=== PATIENT | female | born 1990 | race Caucasian/White ===

== ENCOUNTER → 2017-08-24 14:52 | Outpatient (CLI) | payer MEDICAID, SELFPAY ==
--- NOTE | 2017-08-24 15:01 | US_ITS ---
ULTRASOUND THYROID PROCEDURE: Multiple sagittal & transverse ultrasound images of the thyroid.BH HISTORY: Dysphasia. HISTORY of thyroid cancer. Pain right thyroid. COMPARISON: No previous studies for comparison ----- FINDINGS: No discrete nodules identified.. Fair quality images. Slightly less than optimal along posterior gland with some artifact and fall out Fairly homogeneous with only slight variations Gland appears normal to upper normal size. Modest color Doppler flow to both right and left lobe. RIGHT LOBE: 4 cm x 1.9 cm wide x 1.3 cm AP. LEFT LOBE: 3.7 cm x 1.7 cm wide x 1.2 cm AP. On close inspection initially question possible vague vague 3.5 mm nodule at posterior lower pole but it does not persist.. Equivocal observation not convincing for nodule. ISTHMUS: Normal. Moderate thickness 4.1 mm AP thickness ======IMPRESSION ...... no discrete thyroid nodule on today's study. Gland is fairly homogeneous with no discrete findings on submitted images. (Added note. An addendum may follow as I have requested previous studies from [facility] for comparison as I understand name reported a thyroid nodule on previous ultrasound thyroid)
== END ==
PROVIDERS: PCP Physician Assistant; Visit Provider Physician Assistant
DX: R13.10 Dysphagia, unspecified (principal); Z80.8 Family history of malignant neoplasm of other organs or systems
CPT/HCPCS: 76536

== ENCOUNTER → 2018-06-17 09:36 | Outpatient (CLI) | payer MEDICAID, SELFPAY ==
[2018-06-17 09:41] LABS: Adenovirus,PCR Not Detected (NotDetected); Bordetella Pertussis Not Detected (NotDetected); Chlamydophila Pneumoniae, PCR Not Detected (NotDetected); Coronavirus 229E Not Detected (NotDetected); Coronavirus NL63 Not Detected (NotDetected); Coronavirus OC43 Not Detected (NotDetected); Coronovirus HKU1,PCR Not Detected (NotDetected); Human Metapneumovirus Not Detected (NotDetected); Influenza A, PCR Not Detected (NotDetected); Influenza AH1, 2009 Not Detected (NotDetected); Influenza AH1, PCR Not Detected (NotDetected); Influenza AH3,PCR Not Detected (NotDetected); Influenza B, PCR Not Detected (NotDetected); Mycoplasma Pneumoniae, PCR Not Detected (NotDetected); Parainfluenza 1, PCR Not Detected (NotDetected); Parainfluenza 2, PCR Not Detected (NotDetected); Parainfluenza 3, PCR Not Detected (NotDetected); Parainfluenza 4, PCR Not Detected (NotDetected); Respiratory Syncytial Virus Not Detected (NotDetected); Rhinovirus/Enterovirus Not Detected (NotDetected)
== END ==
PROVIDERS: PCP Physician Assistant; Visit Provider Physician Assistant
DX: R09.89 Other specified symptoms and signs involving the circulatory and respiratory systems (principal)
CPT/HCPCS: 87486; 87581; 87633; 87798

== ENCOUNTER 2019-11-04 12:51 | Emergency (ER) | payer MEDICAID, SELFPAY ==
[2019-11-04 12:53] VITALS: BP 129/73; PULSE 87; RESP 17; TEMP 36.7; O2SAT 98; BMI 34.9
[2019-11-04 13:06] VITALS: BMI 34.9
--- NOTE | 2019-11-04 13:08 | CT_ITS ---
PROCEDURE: CT ABDOMEN PELVIS WO CON CLINICAL INDICATION: stone protocol The low pelvic pain, flank pain COMPARISON: No exams were available for comparison TECHNIQUE: Axial images obtained with sagittal and coronal reformats. All CT scans at the facility use one or more dose reduction, viz: automated exposure control, ma/kV adjustment per patient size (including targeted exams where dose is matched to indication, i.e. head), or iterative reconstruction technique. FINDINGS: LOWER THORAX: No acute finding ABDOMEN & PELVIS: Prior cholecystectomy. The liver, spleen, adrenal glands, pancreas, and kidneys have an unremarkable appearance. No intestinal obstruction or free air. No evidence of appendicitis. There are few scattered colonic diverticula but no evidence of diverticulitis. No pelvic mass abnormal fluid collection or focal inflammatory change apparent no acute bony anomalies. IMPRESSION: No acute finding Dictated by: Terry Guerrero MD 11/04/2019 14:18 Electronically signed by Terry Guerrero MD in [place] 11/04/2019 14:18
[2019-11-04 13:18] LABS: Microscopic, Urine URINE MICROSCOPIC (MICROSCOPIC)
[2019-11-04 13:19] LABS: Basophils % 0.4 % (0.1-2.0); Eosinophils # 0.2 K/mm3 (0.0-0.4); Eosinophils % 1.6 % (0.1-12.0); Hematocrit 44.7 % (37.0-47.0); Hemoglobin 15.3 g/dL (12.2-16.2); Lymphocytes # 2.2 K/mm3 (0.7-4.5); Lymphocytes % 21.1 % (10-50); Mean Corpuscular HGB Conc 34.1 g/dL (31.8-35.4); Mean Corpuscular Hemoglobin 30.2 pg (27.0-31.2); Mean Corpuscular Volume 88.4 fl (81-99); Mean Platelet Volume 8.5 fl (7.4-10.4); Monocytes # 0.2 K/mm3 (0.1-1.0); Monocytes % 2.1 % (1.7-9.3); Neutrophils # 7.7 K/mm3 (1.8-7.8); Platelet Count 379 K/mm3 (142-424); Red Blood Count 5.06 M/mm3 (4.20-5.40); Red Cell Distribution Width 12.9 % (11.5-17.5); White Blood Count 10.3 K/mm3 (4.8-10.8)
[2019-11-04 13:25] LABS: Appearance,Urine CLEAR (Clear); Bilirubin,Urine Negative (Negative); Blood, Urine Negative (Negative); Color,Urine YELLOW (Yellow); Glucose,Urine (UA) Negative (Negative); Ketones,Urine Negative (Negative); Leukocyte Esterase,Urine Negative (Negative); Nitrate,Urine Negative (Negative); PH,Urine 5.5 (5.0-8.5); Protein,Urine Negative (Negative); Specific Gravity, Urine >= 1.030 (1.005-1.030); Urobilinogen,Urine 0.2 EU/dl (0.2)
[2019-11-04 13:26] LABS: Urine Pregnancy, HCG Qual. Negative (Negative)
--- NOTE | 2019-11-04 13:27 | PC.NURSE ---
RAD NOTIFIED OF NEG PREG
[2019-11-04 13:29] LABS: Alanine Aminotransferase 23 U/L (12-78); Albumin Level 4.8 g/dl (3.5-5.0); Albumin/Globulin Ratio 1.5 (1.1-1.8); Alkaline Phosphatase 79 U/L (38-126); Anion Gap 11.1 mEq/L (5-15); Aspartate Amino Transferase 25 U/L (14-36); Bilirubin,Total 0.5 mg/dl (0.2-1.3); Blood Urea Nitrogen 10 mg/dl (7-17); Calcium 9.5 mg/dl (8.4-10.2); Carbon Dioxide 24 mmol/L (22.0-30.0); Chloride 105 mmol/L (98-107); Creatinine Clearance Estimated 174 mL/min (50-200); Estimated Glomerular Filt Rate 86 ml/min (>60); GFR (African American) 104 ML/MIN (>60); Globulin 3.3 g/dL (1.3-3.2); Glucose 105 mg/dl (74-100); Potassium 4.1 mmoL/L (3.5-5.1); Sodium 136 mmol/L (136-145); Total Protein,Serum 8.1 g/dl (6.3-8.2)
[2019-11-04 13:31] LABS: Bacteria,Urine 3+ /lpf; RBC,Urine Occasional #/hpf (0-3); WBC,Urine Occasional #/hpf (0-3)
--- NOTE | 2019-11-04 14:37 | HMH.EDGENADL ---
ED Disposition Clinical Impression: Abdominal pain Disposition: Home, Self-Care Condition on Discharge: Good Instructions: DI for Acute Abdomen Referrals: Rosalva Wallace APRN [Primary Care Provider] - - Critical Care Critical Care Time: No Attestation: On 11/04/19, the high probability of a clinically significant, sudden or life threatening deterioration of the following system(s) required my full and direct attention, intervention and personal management. The time I documented below is in addition to time spent performing reported procedures but includes the following listed in this critical care notation. Medical Decision Making - Medical Records Medical records reviewed: Yes: I reviewed the patient's medical records. - [place] Inquiry Pt receiving controlled substance: No Vital Signs: 11/04/19 12:53 Temperature 98.1 F Temperature Source Oral Pulse Rate [Radial] 87 Respiratory Rate 17 Blood Pressure [Right Arm] 129/73 Blood Pressure Mean [Right Arm] 91 Blood Pressure Source [Right Arm] Automatic Cuff Blood Pressure Position [Right Arm] Sitting 02 Sat by Pulse Oximetry 98 Oxygen Delivery Method Room Air - Lab Data Lab results reviewed: Yes: I reviewed the patient's lab results. Lab Results 11/04/19 13:04: WBC 10.3, RBC 5.06, Hgb 15.3, Hct 44.7, MCV 88.4, MCH 30.2, MCHC 34.1, RDW 12.9, Plt Count 379, MPV 8.5, Neut % (Auto) 75.0, Lymph % (Auto) 21.1, [place] % (Auto) 2.1, Eos % (Auto) 1.6, Baso % (Auto) 0.4, Neut # (Auto) 7.7, Lymph # (Auto) 2.2, [place] # (Auto) 0.2, Eos # (Auto) 0.2, Baso # (Auto) 0.0 11/04/19 13:04: Sodium 136, Potassium 4.1, Chloride 105, Carbon Dioxide 24, Anion Gap 11.1, BUN 10, Creatinine 0.80, Estimated Creat Clear 174, Estimated GFR 86, Est GFR ( Amer) 104, Glucose 105 H, Calcium 9.5, Total Bilirubin 0.5, AST 25, ALT 23, Alkaline Phosphatase 79, Total Protein 8.1, Albumin 4.8, Globulin 3.3 H, Albumin/Globulin Ratio 1.5 11/04/19 13:08: Urine Color Yellow, Urine Appearance Clear, Urine pH 5.5, Ur Specific [place] >= 1.030, Urine Protein Negative, Urine Glucose (UA) Negative, Urine Ketones Negative, Urine Blood Negative, Urine Nitrate Negative, Urine Bilirubin Negative, Urine Urobilinogen 0.2, Ur Leukocyte Esterase Negative, Urine RBC Occasional, Urine WBC Occasional, Ur Squamous Epith Cells 10-20, Urine Bacteria 3+ 11/04/19 13:08: Urine HCG, Qual Negative Result diagrams: 11/04/19 13:04 11/04/19 13:04 Orders (Tests/Meds): ORDERS Category Date Time Status Urine Culture Stat Micro 11/04/19 13:08 Received - CT Data CT Scan: Abdomen, Pelvis Time Received: 14:21 Preliminary Findings: Normal/NAD General Adult HPI - General Chief complaint: Abdominal Pain Stated complaint: possible kidney stone Time Seen by Provider: 11/04/19 14:37 Mode of Arrival: Ambulatory Source of Information: Patient Limitations: No Limitations Description of Symptoms (Recalled from ER Triage Doc. by RN): complaint of pain with urinatioin - History of Present Illness HPI narrative: 29-year-old female presents with right lower quadrant abdominal pain radiating to the groin. She states this pain started about 24 hours ago and progressively got worse until she presented here to the ED presently here in the ED she states she is not in any pain but she was in pain earlier today. She denies any nausea vomiting diarrhea she denies any dysuria. She rates her pain at its crescendo 7 out of 10 presently she is pain-free she stated exacerbations of the pain include movement and alleviating factors include rest. Patient denies any recent sore throat headache fever shortness of breath or cough. - Related Data Allergies Allergy/AdvReac Type Severity Reaction Status Date / Time No Known Allergies Allergy Verified 11/04/19 13:07 [facility] History - Hepatitis A Screen Drug use history?: No High risk sexual behaviors?: No History of sexually transmitted infection?: No Currently employed?:
[2019-11-04 15:06] VITALS: BP 124/76; PULSE 72; RESP 18; TEMP 36.8; O2SAT 98
== END 2019-11-04 15:08 | disposition home or self-care (01) ==
PROVIDERS: Emergency Provider Family Medicine; PCP Nurse Practitioner
DX: R10.31 Right lower quadrant pain (principal)
CPT/HCPCS: 74176; 80053; 81001; 81025; 85025; 87086; 99283

== ENCOUNTER 2024-02-11 17:19 | Emergency (ER) | payer OTHER, SELFPAY ==
--- NOTE | 2024-02-11 17:20 | ECG_ITS ---
APPROVED REPORT Exam: Resting ECG HR:96 bpm ECG Measurements Heart Rate 96 AXES WA 140 P 55 QRSd 84 QRS 55 QT 330 T 37 QTc 384 Conclusion SINUS RHYTHM NONSPECIFIC ST & T-WAVE ABNORMALITY BORDERLINE ECG Electronically signed by : ARSLAN LANDAVERDE, 02/12/2024 00:00:33
[2024-02-11 17:23] VITALS: BP 130/79; PULSE 104; RESP 16; TEMP 37.8; O2SAT 96; BMI 45.6
--- NOTE | 2024-02-11 17:27 | PC.NURSE ---
PT PROVIDED WARM BLANKET
--- NOTE | 2024-02-11 17:36 | XR_ITS ---
PROCEDURE INFORMATION: Exam: XR Chest Exam date and time: 02/11/2024 6:02 PM Age: 33 years old Clinical indication: Other: Chest pain TECHNIQUE: Imaging protocol: Radiologic exam of the chest. Views: 2 views. COMPARISON: CT ABDOMEN PELVIS WO CON 11/04/2019 1:32 PM FINDINGS: Lungs: Lung volumes are mildly diminished. There is a questionable small nodular density overlying the anterior upper lung on the lateral view measuring approximately 8 mm, not confirmed on the frontal view. While this could reflect artifact. recommend additional evaluation. The lungs appear otherwise clear. No focal areas of consolidation. Pleural spaces: No pleural effusions. Negative for pneumothorax. Heart/Mediastinum: Cardiac silhouette and pulmonary vasculature are within range of normal. Bones/joints: There is no evidence of acute fracture. IMPRESSION: 1. Questionable small nodular density overlying the anterior upper lung on the lateral view measuring approximately 8 mm, not confirmed on the frontal view. While this could reflect artifact, recommend additional evaluation. 2. Otherwise, negative for an acute cardiopulmonary abnormality.
--- NOTE | 2024-02-11 17:37 | PC.NURSE ---
DR LANDAVERDE AT BEDSIDE
--- NOTE | 2024-02-11 17:40 | ED_ITS ---
Discharge Plan Disposition Patient Disposition: Home, Self-Care Condition: Good Prescriptions Prescriptions: New amoxicillin-pot clavulanate 875-125 mg tablet 1 tab PO BID Qty: 20 0RF azithromycin 500 mg tablet 500 mg PO DAILY 2 Days Qty: 2 0RF Rx Instructions: start 02/12/24 [id number] [Bromfed DM] 2-30-10 mg/5 mL syrup 5 ml PO Q6H PRN (Reason: cold symptoms) Qty: 118 0RF Referrals Follow up/Referrals: Provider,Referral, MD [Referring] - See instructions Activity Restrictions/Add. Instructions Additional Instructions/Restrictions: You were evaluated in the emergency department today. Please brain picker your prescriptions for antibiotics and take the full course as prescribed. Take Bromfed as needed for cough and congestion. Take Tylenol and ibuprofen every 4- 6 hours at home as needed for pain/fever. You were incidentally found to have a granuloma of your right lung, which is probably from prior infection. For this, I recommend follow-up with your primary care provider. You were also incidentally found to have slight enlargement of your liver and spleen, which I also recommend following up with your primary care provider for. Clinical Impressions Clinical Impression: Pneumonia, Calcified granuloma of lung, Hepatosplenomegaly Stand Alone Forms Stand Alone Forms: Work/School Release Instructions Patient Instructions: DI for Pneumonia -- Adult Print Language Print Language: Syriac Discharge ED Provider: Nikki Lund General Adult HPI General Chief complaint: Upper Respiratory Infection Stated complaint: Chest Pain Time Seen by Provider: 02/11/24 17:31 Mode of Arrival: Ambulatory Source of Information: Patient Limitations: No Limitations Description of Symptoms (Recalled from ER Triage Doc. by RN): pt c/o SOA, fever, myalgia, and sternal chest pressure 2/10. pt reports the chest pressure has been ongoing x2h and the other symptoms started last night. LMP 3wks ago. pt reports her temp was 102, she took tylenol cold and flu around 1530 History of Present Illness HPI narrative: This patient is a 33-year-old female who denies significant past medical history presenting to the emergency department for evaluation with concern for fever, body aches, chest pain and shortness of breath that started last night. Chest pain is in the middle and radiates through to her back. She states it feels like a tightness. She states that her just got over COVID and double pneumonia. She notes fever at home with temperature of 102 ?F. She took Tylenol cold and flu around 1530. No other concerns noted at this time, except for mild nausea that started on the way over here. Related Data Previous Rx's ?Medication ?Instructions ?Recorded amoxicillin 875 mg-potassium 1 tab PO BID #20 tabs 02/11/24 clavulanate 125 mg tablet azithromycin 500 mg tablet 500 mg PO DAILY 2 days #2 tabs 02/11/24 [id number] 5 ml PO Q6H PRN cold symptoms #118 02/11/24 2 mg-30 mg-10 mg/5 mL oral syrup mL (Bromfed DM) Allergies Allergy/AdvReac Type Severity Reaction Status Date / Time No Known Allergies Allergy Verified 02/11/24 17:29 [facility] Disclaimer: The information contained in this section may have been updated after the patient was seen, as this information can be updated by other users. Social History Smoking Status: Current every day smoker alcohol intake: never current occupational status: employed Travel in the last 8 weeks: None housing: house ROS Obtained: Yes All systems reviewed & no additional complaints except as documented Physical Exam General General appearance: alert and in no apparent distress Head Head exam: atraumatic and normocephalic Eye Eye exam: Present normal appearance, PERRL and EOMI ENT ENT exam: Present normal oropharynx, mucous membranes moist, normal external ear exam and other (Nasal congestion) Neck Neck exam: Present normal inspection, full ROM and trachea midline; Absent tenderness Chest Chest inspection: Present normal inspection and symmetric chest wall rise; Absent tenderness Respiratory Respiratory exam: Present normal lung sounds bilaterally; Absent respiratory distress, wheezes, stridor or accessory muscle use Cardiovascular Cardiovascular exam: Present regular rate and normal rhythm Abdominal Exam Abdominal exam: Present soft; Absent distention, tenderness or guarding Extremities Exam Extremities exam: Present normal inspection, full ROM and normal capillary refill; Absent tenderness or edema Back Exam Back exam: Present normal inspection and full ROM; Absent tenderness Neurological Exam Neurological exam: Present alert, oriented X3, CN II-XII intact and normal gait; Absent motor sensory deficit Psychiatric Psychiatric exam: Present normal affect and normal mood Skin Skin exam: Present warm and dry Medical Decision Making Medical Records Medical records reviewed: Yes I reviewed the patient's medical records. [place] Inquiry Pt receiving controlled substance: No Vital Signs: 02/11/24 17:23 02/11/24 18:00 02/11/24 18:30 Temperature 100.1 F H Temperature Source Oral Pulse Rate 95 H 85 Pulse Rate [Left] 104 H Respiratory Rate 16 Blood Pressure 141/82 H 129/68 Blood Pressure [Right Arm] 130/79 Blood Pressure Mean [Right Arm] 96 Blood Pressure Source Blood Pressure Source [Right Arm] Automatic Cuff Blood Pressure Position Blood Pressure Position [Right Arm] Sitting 02 Sat by Pulse Oximetry 96 96 94 L Oxygen Delivery Method Room Air Room Air Room Air 02/11/24 20:11 Temperature 98.7 F Temperature Source Oral Pulse Rate 87 Pulse Rate [Left] Respiratory Rate 20 Blood Pressure 148/93 H Blood Pressure [Right Arm] Blood Pressure Mean [Right Arm] Blood Pressure Source Automatic Cuff Blood Pressure Source [Right Arm] Blood Pressure Position Sitting Blood Pressure Position [Right Arm] 02 Sat by Pulse Oximetry Oxygen Delivery Method Room Air Lab Data Lab results reviewed: Yes I reviewed the patient's lab results. Lab Results 02/11/24 17:27: WBC 10.0, RBC 4.47, Hgb 13.5, Hct 42.0, MCV 93.9, MCH 30.2, MCHC 32.2, RDW 13.5, Plt Count 273, MPV 8.9, Neut % (Auto) 83.9 H, Lymph % (Auto) 11.9, Ashley % (Auto) 2.5, Eos % (Auto) 1.2, Baso % (Auto) 0.4, Neut # (Auto) 8.4 H, Lymph # (Auto) 1.2, Ashley # (Auto) 0.3, Eos # (Auto) 0.1, Baso # (Auto) 0.0, D-Dimer 0.34, Sodium 146 H, Potassium 3.4 L, Chloride 85 L, Carbon Dioxide 19 L, Anion Gap 45.4 H, BUN 7, Creatinine 0.60, Estimated Creat Clear 137, Estimated GFR 117, Est GFR ( Amer) 141, Glucose 89, Calcium 5.0 L*, Phosphorus 3.3, Total Bilirubin 0.9, AST 16, ALT 16, Alkaline Phosphatase 53, Total Protein 6.2 L, Albumin 4.0, Globulin 2.2, Albumin/Globulin Ratio 1.8, Lipase 90, TSH 0.79, Thyroxine (T4) 8.6, Serum HCG, Qual Negative 02/11/24 17:58: SARS-CoV-2 (PCR) Not detected, Influenza A Untype (PCR) Not detected, Influenza Type B (PCR) Not detected 02/11/24 18:02: Sodium 134 L, Potassium 3.8, Chloride 108 H, Carbon Dioxide 24, Anion Gap 5.8, BUN 7, Creatinine 0.80 D, Estimated Creat Clear 103, Estimated GFR 84, Est GFR ( Amer) 101 D, Glucose 94, Calcium 8.5, Magnesium 1.6, Total Bilirubin 1.0, AST 19, ALT 19, Alkaline Phosphatase 70, Total Creatine Kinase 103, Troponin I < 0.01, Total Protein 6.8, Albumin 3.9, Globulin 2.9, Albumin/Globulin Ratio 1.3 02/11/24 18:04: VBG pH 7.41, VBG pCO2 34.3 L, VBG pO2 78.6 H, VBG HCO3 21.4 L, V BG Total CO2 22.4 L, VBG O2 Saturation 96.0 H, VBG Base Excess -3.3 L, VBG Lactic Acid 0.8 02/11/24 17:27 02/11/24 18:02 Orders (Tests/Meds): ED MEDICATIONS Discontinued Medications Generic Name Dose Route Start Last Admin Trade Name Al PRN Reason Stop Dose Admin Acetaminophen 1,000 mg 02/11/24 17:36 02/11/24 17:47 Acetaminophen 500mg Tab PO 02/11/24 17:37 1,000 mg ONCE ONE Administration Amoxicillin/Clavulanate Potassium 1 each 02/11/24 20:04 02/11/24 20:08 Amoxicillin/Clavulanate Potassium 875/125mg Tablet PO 02/11/24 20:05 1 each ONCE ONE Administration Azithromycin 500 mg 02/11/24 20:04 02/11/24 20:08 Azithromycin 250mg Tablet PO 02/11/24 20:05 500 mg ONCE ONE Administration Lactated Ringer's 1,000 mls @ 999 mls/hr 02/11/24 17:36 02/11/24 17:47 Lactated Ringer's 1000 Ml Bag IV 02/11/24 18:36 999 mls/hr .Q1H1M ONE Administration Calcium Gluconate/Sodium Chloride 2 gm in 100 mls @ 50 mls/hr 02/11/24 18:49 02/11/24 19:04 Calcium Gluconate 2,000mg/100ml Nacl Premix IV 02/11/24 20:48 Not Given ONCE ONE Iopamidol 75 ml 02/11/24 18:57 02/11/24 18:58 Iopamidol-370 (76%);100ml Bottle IV 02/11/24 18:58 75 ml ONCE ONE Administration Ketorolac Tromethamine 15 mg 02/11/24 17:36 02/11/24 17:47 Ketorolac 30mg/Ml Vial IV 02/11/24 17:37 15 mg ONCE ONE Administration Ondansetron HCl 4 mg 02/11/24 17:39 02/11/24 17:47 Ondansetron 4mg/2ml Vial IV 02/11/24 17:40 4 mg ONCE ONE Administration Sodium Chloride 10 ml 02/11/24 18:57 02/11/24 18:58 Sodium Chloride 0.9% 10ml Syr (Rad Only) IV 02/11/24 18:58 10 ml ONCE ONE Administration ORDERS Category Date Time Status CT chest w con Stat Cat Scan 02/11/24 18:40 Completed CXR 2 view (NOT portable) [XR chest 2V] Stat Exams 02/11/24 17:36 Completed CBC w/Auto Diff [Complete Blood Count Auto Diff] Stat Lab 02/11/24 17:27 Completed CK [Creatine Kinase] Stat Lab 02/11/24 18:02 Completed CMP [Comprehensive Metabolic Panel] Stat Lab 02/11/24 17:27 Completed CMP [Comprehensive Metabolic Panel] Stat Lab 02/11/24 18:02 Completed D-Dimer Stat Lab 02/11/24 17:27 Completed Full Resp Panel w/COVID ([facility]) Routine Lab 02/11/24 17:58 Received Lipase Stat Lab 02/11/24 17:27 Completed Magnesium Stat Lab 02/11/24 18:02 Completed PHOS [Phosphorous] Stat Lab 02/11/24 17:27 Completed Rapid PCR Covid and Flu A/B Stat Lab 02/11/24 17:58 Completed Serum [HCG Qualitative, Serum] Stat Lab 02/11/24 17:27 Completed T4 (Thyroxine) Stat Lab 02/11/24 17:27 Completed TSH [Thyroid Stimulating Hormone] Stat Lab 02/11/24 17:27 Completed Trop I [Troponin I] Stat Lab 02/11/24 18:02 Completed VBG [Venous Blood Gas] Stat RT 02/11/24 18:04 Completed ECG Data Tracing #1: I reviewed this ECG and interpreted as documented below: Normal sinus rhythm with a ventricular rate of [address] changes concerning for ischemia. Normal axis and intervals. ECG initial impression date: 02/11/24 ECG initial impression time: 17:22 Medical Decision Narrative: In summary, this patient is a 33-year-old female presenting to the Emergency Department for evaluation of fever, cough, body aches, chest pain. Differential diagnoses considered include but are not limited to viral syndrome, ACS, dysrhythmia, PE, hyperthyroid. Ruling out the most morbid conditions drove assessment. On exam, the patient is well-appearing with reassuring vital signs on cardiac telemetry. She is febrile with initial tachycardia upon arrival, but heart rate improved after she was lying still for short period. Cardiopulmonary exam is reassuring. No focal findings on history or exam to suggest acute bacterial infection. I feel she likely has viral syndrome, especially since her just had COVID-19. Workup included CBC, CMP, troponin, D-dimer, test, TSH, T4, chest x-ray, EKG, viral swab. She is given a bolus of IV fluids as well as IV Toradol, acetaminophen, Zofran for symptomatic improvement.. I independently interpreted chest x-ray prior to the radiologist read and noted possible lung nodule versus pneumonia. Please see their read for final interpretation. They thought it could be a granuloma, so CT chest with contrast was obtained to further assess. Labs were obtained that demonstrated significant initial derangements with an anion gap of 45, hyponatremia, severe hypocalcemia. I was concerned this could potentially be lab error, as the patient is very well-appearing with normal vital signs, no tetany or signs/symptoms of hypocalcemia, and no EKG changes. Repeat CMP was sent and was normal with only very mild hyponatremia. Workup otherwise reassuring as far as lab evaluation goes. COVID and flu negative. CT scan is concerning for pneumonia as well as a calcified granuloma, which I notified the patient of. She also had hepatosplenomegaly which I notified her of. Ultimately she is resting comfortably on reassessment with reassuring labs, reassuring vitals, and no increased work of breathing, so I feel she is appropriate for discharge home with outpatient treatment of pneumonia. She was given prescriptions for Augmentin and azithromycin as well as instructions for close outpatient follow-up and strict return precautions. She was discharged after all questions were answered Critical Care Critical Care Time Critical Care Time: No
[2024-02-11 17:42] LABS: Basophils % 0.4 % (0.1-2.0); Eosinophils # 0.1 K/mm3 (0.0-0.4); Eosinophils % 1.2 % (0.1-12.0); Hemoglobin 13.5 g/dL (12.2-16.2); Lymphocytes # 1.2 K/mm3 (0.7-4.5); Lymphocytes % 11.9 % (10-50); Mean Corpuscular HGB Conc 32.2 g/dL (31.8-35.4); Mean Corpuscular Hemoglobin 30.2 pg (27.0-31.2); Mean Corpuscular Volume 93.9 fl (81-99); Mean Platelet Volume 8.9 fl (7.4-10.4); Monocytes # 0.3 K/mm3 (0.1-1.0); Monocytes % 2.5 % (1.7-9.3); Neutrophils # 8.4 K/mm3 (1.8-7.8); Neutrophils % 83.9 % (37.0-80.0); Platelet Count 273 K/mm3 (142-424); Red Blood Count 4.47 M/mm3 (4.20-5.40); Red Cell Distribution Width 13.5 % (11.5-17.5)
[2024-02-11] MEDS: ACETAMINOPHEN 500MG TAB 1000 MG PO (17:47)
[2024-02-11] MEDS: ONDANSETRON 4MG/2ML VIAL 4 MG IV (17:47)
[2024-02-11] MEDS: KETOROLAC 30MG/ML VIAL 15 MG IV (17:47)
[2024-02-11] MEDS: LACTATED RINGERS 1000ML 1,000 ML 999 ML IV (17:47)
[2024-02-11 17:52] LABS: HCG Qualitative, Serum Negative (Negative)
[2024-02-11 17:55] LABS: Alanine Aminotransferase 16 U/L (12-78); Albumin/Globulin Ratio 1.8 (1.1-1.8); Alkaline Phosphatase 53 U/L (38-126); Anion Gap 45.4 mEq/L (5-15); Aspartate Amino Transferase 16 U/L (14-36); Bilirubin,Total 0.9 mg/dl (0.2-1.3); Blood Urea Nitrogen 7 mg/dl (7-17); Carbon Dioxide 19 mmol/L (22.0-30.0); Chloride 85 mmol/L (98-107); Creatinine Clearance Estimated 137 mL/min (50-200); Estimated Glomerular Filt Rate 117 ml/min (>60); GFR (African American) 141 ML/MIN (>60); Globulin 2.2 g/dL (1.3-3.2); Glucose 89 mg/dl (74-100); Potassium 3.4 mmoL/L (3.5-5.1); Sodium 146 mmol/L (136-145); Total Protein,Serum 6.2 g/dl (6.3-8.2)
--- NOTE | 2024-02-11 17:57 | PC.NURSE ---
Dr. Lund notified of CA of 5.0.
[2024-02-11 18:00] VITALS: BP 141/82; PULSE 95; O2SAT 96
[2024-02-11 18:01] LABS: D-Dimer 0.34 ug/mL (0.0-0.5)
[2024-02-11 18:02] LABS: Coronavirus 19, PCR Not Detected (NotDetected); Influenza A, PCR Not Detected (NotDetected); Influenza B, PCR Not Detected (NotDetected)
--- NOTE | 2024-02-11 18:04 | PC.NURSE ---
RT notified of VBG order
[2024-02-11 18:08] LABS: Lactate Venous 0.8 mmol/L (0.4-2.0); VBG Base Excess -3.3 mmol/L (-2.4-2.3); VBG HCO3 21.4 mmol/L (23-30); VBG PCO2 34.3 mmol/L (35-51); VBG PH 7.41 mmol/L (7.31-7.41); VBG PO2 78.6 mmol/L (28-40); VBG Total CO2 22.4 mmol/L (23-27)
--- NOTE | 2024-02-11 18:12 | PC.NURSE ---
Pt gone to RAD via stretcher
[2024-02-11 18:15] LABS: T4 (Thyroxine) 8.6 ug/dl (5.53-11.0)
--- NOTE | 2024-02-11 18:16 | PC.NURSE ---
Pt returned from RAD
[2024-02-11 18:17] LABS: Alanine Aminotransferase 19 U/L (12-78); Alkaline Phosphatase 70 U/L (38-126); Aspartate Amino Transferase 19 U/L (14-36); Blood Urea Nitrogen 7 mg/dl (7-17); Carbon Dioxide 24 mmol/L (22.0-30.0); Creatinine Clearance Estimated 103 mL/min (50-200); Estimated Glomerular Filt Rate 84 ml/min (>60); GFR (African American) 101 ML/MIN (>60); Total Protein,Serum 6.8 g/dl (6.3-8.2)
[2024-02-11 18:18] LABS: Calcium 8.5 mg/dl (8.4-10.2); Glucose 94 mg/dl (74-100)
[2024-02-11 18:28] LABS: Thyroid Stimulating Hormone 0.79 uIU/mL (0.465-4.68)
[2024-02-11 18:30] VITALS: BP 129/68; PULSE 85; O2SAT 94
[2024-02-11 18:32] LABS: Creatine Kinase 103 U/L (30-135); Magnesium 1.6 mg/dl (1.6-2.3)
--- NOTE | 2024-02-11 18:40 | CT_ITS ---
PROCEDURE INFORMATION: Exam: CT Chest With Contrast; Diagnostic Exam date and time: 02/11/2024 6:53 PM Age: 33 years old Clinical indication: Other: Chest pain; Additional info: Nodule lung, chest pain, hypocalcemia TECHNIQUE: Imaging protocol: Diagnostic computed tomography of the chest with contrast. Radiation optimization: All CT scans at this facility use at least one of these dose optimization techniques: automated exposure control; mA and/or kV adjustment per patient size (includes targeted exams where dose is matched to clinical indication); or iterative reconstruction. Contrast material: ISOVUE; Contrast volume: 75 ml; Contrast route: IV; COMPARISON: CR XR CHEST 2V 02/11/2024 6:02 PM FINDINGS: Thyroid: The visualized thyroid gland is normal. Lungs: There are mild patchy opacities in the inferior anterior left lower lobe. Findings suspicious for pneumonia. The remainder of the lungs are clear. Pleural spaces: No pneumothorax. No pleural effusions. Heart: The heart is not enlarged. Lymph nodes: Calcified right hilar lymph node indicates prior granulomatous disease. There are several scattered noncalcified mediastinal lymph nodes. A right paratracheal lymph node measures 11 mm in short axis. Vasculature: No aortic aneurysm. Liver: There is mild enlargement of the visualized portions of the liver. The liver measures at least 19.3 cm in CC dimension. There is diffuse decrease in hepatic/liver parenchymal density Embeda visualized portions of the liver consistent with fatty infiltration Gallbladder and biliary ducts: There is a mild, expected degree of common bile duct dilation. Spleen: There is mild nonspecific splenomegaly. The spleen measures 14.7 cm in AP dimension. Bones/joints: The thoracic spine demonstrates minor degenerative changes involving the mid spine. Soft tissues: No significant soft tissue edema. IMPRESSION: 1. Mild patchy opacities in the inferior anterior left lower lobe. Findings suspicious for pneumonia. 2. Mildly prominent mediastinal adenopathy, which may be reactive. 3. Calcified granuloma in the right anterior upper lobe consistent with prior granulomatous disease. This explains the nodular density seen on earlier chest radiograph from the same date. 4. Mild splenomegaly. 5. Mild hepatomegaly and fatty infiltration involving the visualized portions of the liver.
[2024-02-11 18:50] LABS: Anion Gap 5.8 mEq/L (5-15); Chloride 108 mmol/L (98-107); Potassium 3.8 mmoL/L (3.5-5.1); Sodium 134 mmol/L (136-145)
[2024-02-11 18:51] LABS: Albumin Level 3.9 g/dl (3.5-5.0); Albumin/Globulin Ratio 1.3 (1.1-1.8); Globulin 2.9 g/dL (1.3-3.2)
[2024-02-11] MEDS: SODIUM CHLORIDE 0.9% 10ML SYR (RAD ONLY) 10 ML IV (18:58)
[2024-02-11] MEDS: IOPAMIDOL-370 (76%);100ML BOTTLE 75 ML IV (18:58)
[2024-02-11 19:14] LABS: Troponin I < 0.01 ng/ml (0.00-0.034)
[2024-02-11 19:17] LABS: Lipase 90 U/L (23-300); Phosphorous 3.3 mg/dl (2.5-4.5)
[2024-02-11 19:39] LABS: Adenovirus,PCR Not Detected (NotDetected); Bordetella Pertussis Not Detected (NotDetected); Chlamydophila Pneumoniae, PCR Not Detected (NotDetected); Coronavirus 19, PCR Not Detected (NotDetected); Coronavirus 229E Not Detected (NotDetected); Coronavirus NL63 Not Detected (NotDetected); Coronavirus OC43 Not Detected (NotDetected); Coronovirus HKU1,PCR Not Detected (NotDetected); Human Metapneumovirus Not Detected (NotDetected); Influenza A, PCR Not Detected (NotDetected); Influenza AH1, 2009 Not Detected (NotDetected); Influenza AH1, PCR Not Detected (NotDetected); Influenza AH3,PCR Not Detected (NotDetected); Influenza B, PCR Not Detected (NotDetected); Mycoplasma Pneumoniae, PCR Not Detected (NotDetected); Parainfluenza 1, PCR Not Detected (NotDetected); Parainfluenza 2, PCR Not Detected (NotDetected); Parainfluenza 3, PCR Not Detected (NotDetected); Parainfluenza 4, PCR Not Detected (NotDetected); Respiratory Syncytial Virus Not Detected (NotDetected); Rhinovirus/Enterovirus Not Detected (NotDetected)
[2024-02-11] MEDS: AZITHROMYCIN 250MG TABLET 500 MG PO (20:08)
[2024-02-11] MEDS: AMOXICILLIN/CLAVULANATE POTASSIUM 875/125MG TABLET 1 EACH PO (20:08)
[2024-02-11 20:11] VITALS: BP 148/93; PULSE 87; RESP 20; TEMP 37.1; O2SAT 94
== END 2024-02-11 20:13 | disposition home or self-care (01) ==
PROVIDERS: Emergency Provider Emergency Medicine; PCP Nurse Practitioner
DX: J18.9 Pneumonia, unspecified organism (principal); R07.2 Precordial pain; R06.02 Shortness of breath; J84.10 Pulmonary fibrosis, unspecified; R16.2 Hepatomegaly with splenomegaly, not elsewhere classified; R50.9 Fever, unspecified; F17.210 Nicotine dependence, cigarettes, uncomplicated
CPT/HCPCS: 71046; 71260; 80050; 80053; 82550; 82803; 83690; 83735; 84100; 84436; 84443; 84484; 84703; 85025; 85378; 87581; 87632; 87635; 87636; 87798; 93005; 96361; 96374; 96375; 99285; J1885; J2405; J7120; Q9967

== ENCOUNTER 2024-05-25 20:11 | Emergency (ER) | payer OTHER, SELFPAY ==
--- NOTE | 2024-05-25 20:15 | ECG_ITS ---
APPROVED REPORT Exam: Resting ECG HR:66 bpm ECG Measurements Heart Rate 66 AXES SC 133 P 38 QRSd 93 QRS 34 QT 412 T 35 QTc 425 Conclusion SINUS RHYTHM NORMAL ECG Electronically signed by : ANTONIA TAM, 05/26/2024 00:17:48
[2024-05-25 20:16] VITALS: BP 129/74; PULSE 60; RESP 20; TEMP 36.5; O2SAT 99; BMI 46.5
--- NOTE | 2024-05-25 20:19 | XR_ITS ---
PROCEDURE INFORMATION: Exam: XR Chest Exam date and time: 05/25/2024 9:00 PM Age: 33 years old Clinical indication: Pain; Left-sided; Additional info: Left upper chest pain, cough TECHNIQUE: Imaging protocol: Radiologic exam of the chest. Views: 2 views. COMPARISON: CT CHEST W CON 02/11/2024 6:53 PM FINDINGS: Lungs: Unremarkable. No consolidation. Pleural spaces: Unremarkable. No pleural effusion. No pneumothorax. Heart/Mediastinum: Unremarkable. No cardiomegaly. Bones/joints: Unremarkable. IMPRESSION: No acute findings.
--- NOTE | 2024-05-25 20:22 | ED_ITS ---
Discharge Plan Disposition Patient Disposition: Home, Self-Care Prescriptions Prescriptions: No Action fluoxetine 20 mg capsule 20 mg PO DAILY Patient Comments: TAKE 1 CAPSULE 1 TIME EACH DAY WITH 40 MG CAPSULE fluoxetine 40 mg capsule 40 mg PO DAILY Patient Comments: TAKE 1 CAPSULE 1 TIME EACH DAY WITH 20 MG CAPSULE Referrals Follow up/Referrals: Yon Malcolm MD [Staff Physician] - See instructions Provider,MD Haroon [Referring] - See instructions Activity Restrictions/Add. Instructions Additional Instructions/Restrictions: At this time it was felt you are safe to be discharged home. If new or worsening symptoms please do not hesitate to return the emergency department. Please call and schedule appoint with Dr. Malcolm as soon as you are able. Clinical Impressions Clinical Impression: Chest pain, Cough Print Language Print Language: Palauan Discharge ED Provider: Juan Kat [facility] <Juan Kat MD - Last Filed: 05/26/24 00:07> General Chief Complaint: Chest Pain Stated Complaint: Chest Pain Time Seen by Provider: 05/25/24 20:19 Mode of Arrival: Ambulatory Source of Information: Patient Limitations: No Limitations Description of Symptoms (Recalled from ER Triage Doc. by RN): Pt states she developed chest pain when hanging clothes with no relief Pain 3 on 1-10 scale currently No associated symptoms History of Present Illness HPI narrative: Patient is a 33-year-old female with no pertinent past medical history who presents emergency department for evaluation of chest pain. Onset was acute, 45 minutes to an hour prior to arrival. It is in her left upper chest and originally radiated into her neck but now is not having any neck pain. She has had a cough over the last week. No abdominal pain, no other acute complaints at this time. Related Data Home Medications ?Medication ?Instructions ?Recorded ?Confirmed fluoxetine 20 mg capsule 20 mg PO DAILY 03/14/24 03/14/24 fluoxetine 40 mg capsule 40 mg PO DAILY 03/14/24 03/14/24 Allergies Allergy/AdvReac Type Severity Reaction Status Date / Time No Known Allergies Allergy Verified 03/14/24 13:09 PFS <Juan Kat MD - Last Filed: 05/26/24 00:07> [facility] Disclaimer: The information contained in this section may have been updated after the patient was seen, as this information can be updated by other users. Medical History (Updated 05/25/24 @ 23:57 by Juan Kat MD) Irritability and anger Surgical History (Updated 03/14/24 @ 13:12 by Penny Marcelino MA) Tubal ligation status Hx of cholecystectomy H/O lateral meniscus repair of right knee Social History (Updated 03/14/24 @ 13:13 by Penny Marcelino MA) Smoking Status: Never smoker alcohol intake: never current occupational status: employed housing: house Other Medical History Have you received the Flu Vaccine for this season: No Have you received the Pneumonia Vaccine: No <Juan Kat MD - Last Filed: 05/26/24 00:07> ROS Obtained: Yes Systems reviewed as appropriate & no additional complaints except as documented Physical Exam <Juan Kat MD - Last Filed: 05/26/24 00:07> General General appearance: alert and in no apparent distress Head Head exam: atraumatic and normocephalic Eye Eye exam: Present PERRL and EOMI ENT ENT exam: Present mucous membranes moist Neck Neck exam: Present normal inspection Chest Chest inspection: Present normal inspection and symmetric chest wall rise Respiratory Respiratory exam: Present normal lung sounds bilaterally; Absent respiratory distress Cardiovascular Cardiovascular exam: Present regular rate and normal rhythm Abdominal Exam Abdominal exam: Present soft; Absent tenderness Extremities Exam Extremities exam: Present normal inspection Neurological Exam Neurological exam: Present alert Psychiatric Psychiatric exam: Present normal affect Skin Skin exam: Present warm and dry HEART Score <Juan Kat MD - Last Filed: 05/26/24 00:07> HEART Score HEART Score assessment performed?: Yes History (anamnesis): Moderately suspicious ECG: Normal Age: <45 years Risk factors: No known risk factors Troponin: </= normal limit HEART Score: 1 <Michael Panda MD - Last Filed: 05/26/24 00:51> HEART Score HEART Score: 1 Critical Care <Juan Kat MD - Last Filed: 05/26/24 00:07> Critical Care Time Critical Care Time: No Medical Decision Making <Juan Kat MD - Last Filed: 05/26/24 00:07> Yosi Inquiry Pt receiving controlled substance: No Vital Signs Vital Signs: 05/25/24 20:16 05/25/24 22:00 05/25/24 23:00 Temperature 97.7 F Temperature Source Oral Pulse Rate 60 62 Pulse Rate [Right Brachial] 60 Respiratory Rate 20 24 28 H Blood Pressure 101/62 L 110/60 Blood Pressure [Right Arm] 129/74 Blood Pressure Mean [Right Arm] 92 Blood Pressure Source Blood Pressure Source [Right Arm] Automatic Cuff Blood Pressure Position 02 Sat by Pulse Oximetry 99 97 96 Oxygen Delivery Method Room Air 05/25/24 23:30 05/25/24 23:59 Temperature 98.2 F Temperature Source Oral Pulse Rate 73 73 Pulse Rate [Right Brachial] Respiratory Rate 26 H 14 Blood Pressure 106/62 L 106/62 L Blood Pressure [Right Arm] Blood Pressure Mean [Right Arm] Blood Pressure Source Automatic Cuff Blood Pressure Source [Right Arm] Blood Pressure Position Sitting 02 Sat by Pulse Oximetry 92 L Oxygen Delivery Method Room Air Lab Data Labs: Lab Results 05/25/24 20:20: WBC 10.1, RBC 4.70, Hgb 14.3, Hct 41.7, MCV 88.6, MCH 30.3, MCHC 34.2, RDW 13.7, Plt Count 309, MPV 8.3, Neut % (Auto) 60.5, Lymph % (Auto) 31.1, Frederick % (Auto) 4.1, Eos % (Auto) 3.1, Baso % (Auto) 1.2, Neut # (Auto) 6.1, Lymph # (Auto) 3.1, Frederick # (Auto) 0.4, Eos # (Auto) 0.3, Baso # (Auto) 0.1, D-Dimer 0.51 H, Sodium 139, Potassium 4.1, Chloride 106, Carbon Dioxide 27, Anion Gap 10.1, BUN 12, Creatinine 0.70, Estimated Creat Clear 117, Estimated GFR 98, Est GFR ( Amer) 118, Glucose 85, Calcium 8.9, Total Bilirubin 0.4, AST 26, ALT 24, Alkaline Phosphatase 50, Troponin I < 0.01, Total Protein 6.9, Albumin 4.2, Globulin 2.7, Albumin/Globulin Ratio 1.6, Serum HCG, Qual Negative, HIV 1&2 Antibody Rapid Nonreactive 05/25/24 22:55: Troponin I < 0.01 05/25/24 20:20 05/25/24 20:20 Response Orders (Tests/Meds): ED MEDICATIONS Discontinued Medications Generic Name Dose Route Start Last Admin Trade Name Freq PRN Reason Stop Dose Admin Aspirin 324 mg 05/25/24 20:19 05/25/24 20:32 Aspirin 81mg Chewable Tablet PO 05/25/24 20:20 324 mg ONCE ONE Administration ORDERS Category Date Time Status CXR 2 view (NOT portable) [XR chest 2V] Stat Exams 05/25/24 20:19 Completed CBC w/Auto Diff [Complete Blood Count Auto Diff] Stat Lab 05/25/24 20:20 Completed CMP [Comprehensive Metabolic Panel] Stat Lab 05/25/24 20:20 Completed D-Dimer Stat Lab 05/25/24 20:20 Completed HCG Qualitative, Serum Stat Lab 05/25/24 20:20 Completed HIV (1&2) Antibody Rapid Stat Lab 05/25/24 20:20 Completed Hep C Ab with Reflex to RNA Stat Lab 05/25/24 20:20 Received Trop I [Troponin I] Stat Lab 05/25/24 20:20 Completed Troponin I Q3H Lab 05/25/24 22:55 Completed ECG Data Tracing #1: ECG Narrative: Independently interpreted by me rate is 66, rhythm is regular, axis is normal, no ST elevation or depression in anatomical contiguous leads, QTc 425. Tracing #2: ECG Narrative: Independently inter by me rate 73, rhythm is regular, axis is normal, no ST elevation in anatomical contiguous leads, QTc 447 no dynamic changes compared to prior MDM Narrative Medical Decision Narrative: In summary patient is a 68-year-old female past medical history described above who presents emergency department for evaluation of cough, chest pain. Patient is hemodynamically stable nontoxic-appearing upon arrival, afebrile. Differential includes ACS, pleurisy, pneumonia, noncardiac chest pain, pulmonary embolism, among others. Workup we conducted with hematologic labs, hCG, chest x-ray, rapid swab, serial troponins. Initial inventions include aspirin. Initial workup reviewed by me, hematologic labs are nonactionable, D-dimer excludes pulmonary embolism per years criteria, no significant leukocytosis, no anemia, no DENNY or critical electrolyte abnormality initial troponin undetectably low. hCG negative. Chest x-ray informally interpreted by me no acute large lobar opacities or large pneumothorax. The patient was placed in observation status at 2300. Medical necessity for observational status is serial troponins. The patient was provided serial reevaluations and cardiac monitoring while awaiting results. Serial troponins undetectably low. Repeat evaluation patient did not have worsening pain and was resting comfortably in bed. Serial EKG no dynamic changes. I do think that she is appropriate for outpatient management at this time given that she has no significant cardiovascular risk factors and chest pain 33 years old would be highly unlikely that she is experiencing ACS. Patient was given multiple return precautions and verbalized understanding. Patient will follow-up on an outpatient basis with cardiology. Total time in observation 54 minutes. <Michael Panda MD - Last Filed: 05/26/24 00:51> Vital Signs Vital Signs: 05/25/24 20:16 05/25/24 22:00 05/25/24 23:00 Temperature 97.7 F Temperature Source Oral Pulse Rate 60 62 Pulse Rate [Right Brachial] 60 Respiratory Rate 20 24 28 H Blood Pressure 101/62 L 110/60 Blood Pressure [Right Arm] 129/74 Blood Pressure Mean [Right Arm] 92 Blood Pressure Source Blood Pressure Source [Right Arm] Automatic Cuff Blood Pressure Position 02 Sat by Pulse Oximetry 99 97 96 Oxygen Delivery Method Room Air 05/25/24 23:30 05/25/24 23:59 Temperature 98.2 F Temperature Source Oral Pulse Rate 73 73 Pulse Rate [Right Brachial] Respiratory Rate 26 H 14 Blood Pressure 106/62 L 106/62 L Blood Pressure [Right Arm] Blood Pressure Mean [Right Arm] Blood Pressure Source Automatic Cuff Blood Pressure Source [Right Arm] Blood Pressure Position Sitting 02 Sat by Pulse Oximetry 92 L Oxygen Delivery Method Room Air Lab Data Labs: Lab Results 05/25/24 20:20: WBC 10.1, RBC 4.70, Hgb 14.3, Hct 41.7, MCV 88.6, MCH 30.3, MCHC 34.2, RDW 13.7, Plt Count 309, MPV 8.3, Neut % (Auto) 60.5, Lymph % (Auto) 31.1, Frederick % (Auto) 4.1, Eos % (Auto) 3.1, Baso % (Auto) 1.2, Neut # (Auto) 6.1, Lymph # (Auto) 3.1, Frederick # (Auto) 0.4, Eos # (Auto) 0.3, Baso # (Auto) 0.1, D-Dimer 0.51 H, Sodium 139, Potassium 4.1, Chloride 106, Carbon Dioxide 27, Anion Gap 10.1, BUN 12, Creatinine 0.70, Estimated Creat Clear 117, Estimated GFR 98, Est GFR ( Amer) 118, Glucose 85, Calcium 8.9, Total Bilirubin 0.4, AST 26, ALT 24, Alkaline Phosphatase 50, Troponin I < 0.01, Total Protein 6.9, Albumin 4.2, Globulin 2.7, Albumin/Globulin Ratio 1.6, Serum HCG, Qual Negative, HIV 1&2 Antibody Rapid Nonreactive 05/25/24 22:55: Troponin I < 0.01 Response Orders (Tests/Meds): ED MEDICATIONS Discontinued Medications Generic Name Dose Route Start Last Admin Trade Name Freq PRN Reason Stop Dose Admin Aspirin 324 mg 05/25/24 20:19 05/25/24 20:32 Aspirin 81mg Chewable Tablet PO 05/25/24 20:20 324 mg ONCE ONE Administration ORDERS Category Date Time Status CXR 2 view (NOT portable) [XR chest 2V] Stat Exams 05/25/24 20:19 Completed CBC w/Auto Diff [Complete Blood Count Auto Diff] Stat Lab 05/25/24 20:20 Completed CMP [Comprehensive Metabolic Panel] Stat Lab 05/25/24 20:20 Completed D-Dimer Stat Lab 05/25/24 20:20 Completed HCG Qualitative, Serum Stat Lab 05/25/24 20:20 Completed HIV (1&2) Antibody Rapid Stat Lab 05/25/24 20:20 Completed Hep C Ab with Reflex to RNA Stat Lab 05/25/24 20:20 Received Trop I [Troponin I] Stat Lab 05/25/24 20:20 Completed Troponin I Q3H Lab 05/25/24 22:55 Completed
--- NOTE | 2024-05-25 20:26 | PC.NURSE ---
Pt states she is wearing a heart monitor currently that development technical lead placed. Pt states they placed it due to an episode on numbness to left arm that she had last week
[2024-05-25] MEDS: ASPIRIN 81MG CHEWABLE TABLET 324 MG PO (20:32)
[2024-05-25 20:35] LABS: Basophils # 0.1 K/mm3 (0-0.2); Basophils % 1.2 % (0.1-2.0); Eosinophils # 0.3 K/mm3 (0.0-0.4); Eosinophils % 3.1 % (0.1-12.0); Hematocrit 41.7 % (37.0-47.0); Hemoglobin 14.3 g/dL (12.2-16.2); Lymphocytes # 3.1 K/mm3 (0.7-4.5); Lymphocytes % 31.1 % (10-50); Mean Corpuscular HGB Conc 34.2 g/dL (31.8-35.4); Mean Corpuscular Hemoglobin 30.3 pg (27.0-31.2); Mean Corpuscular Volume 88.6 fl (81-99); Mean Platelet Volume 8.3 fl (7.4-10.4); Monocytes # 0.4 K/mm3 (0.1-1.0); Monocytes % 4.1 % (1.7-9.3); Neutrophils # 6.1 K/mm3 (1.8-7.8); Neutrophils % 60.5 % (37.0-80.0); Platelet Count 309 K/mm3 (142-424); Red Cell Distribution Width 13.7 % (11.5-17.5); White Blood Count 10.1 K/mm3 (4.8-10.8)
[2024-05-25 20:40] LABS: Alanine Aminotransferase 24 U/L (12-78); Albumin Level 4.2 g/dl (3.5-5.0); Albumin/Globulin Ratio 1.6 (1.1-1.8); Alkaline Phosphatase 50 U/L (38-126); Anion Gap 10.1 mEq/L (5-15); Aspartate Amino Transferase 26 U/L (14-36); Bilirubin,Total 0.4 mg/dl (0.2-1.3); Blood Urea Nitrogen 12 mg/dl (7-17); Calcium 8.9 mg/dl (8.4-10.2); Carbon Dioxide 27 mmol/L (22.0-30.0); Chloride 106 mmol/L (98-107); Creatinine Clearance Estimated 117 mL/min (50-200); Estimated Glomerular Filt Rate 98 ml/min (>60); GFR (African American) 118 ML/MIN (>60); Globulin 2.7 g/dL (1.3-3.2); Glucose 85 mg/dl (74-100); Potassium 4.1 mmoL/L (3.5-5.1); Sodium 139 mmol/L (136-145); Total Protein,Serum 6.9 g/dl (6.3-8.2)
[2024-05-25 20:45] LABS: D-Dimer 0.51 ug/mL (0.0-0.5)
[2024-05-25 20:54] LABS: Troponin I < 0.01 ng/ml (0.00-0.034)
[2024-05-25 21:01] LABS: HCG Qualitative, Serum Negative (Negative)
--- NOTE | 2024-05-25 21:13 | PC.NURSE ---
Pt back from xray via wheelchair
[2024-05-25 21:40] LABS: HIV (1&2) Antibody Rapid NONREACTIVE (NONREACTIVE)
[2024-05-25 22:00] VITALS: BP 101/62; PULSE 60; RESP 24; O2SAT 97
[2024-05-25 23:00] VITALS: BP 110/60; PULSE 62; RESP 28; O2SAT 96
--- NOTE | 2024-05-25 23:20 | PC.NURSE ---
Pt resting quietly in bed Aware waiting for 2nd troponin result
[2024-05-25 23:30] VITALS: BP 106/62; PULSE 73; RESP 26; O2SAT 92
[2024-05-25 23:42] LABS: Troponin I < 0.01 ng/ml (0.00-0.034)
[2024-05-25 23:59] VITALS: BP 106/62; PULSE 73; RESP 14; TEMP 36.8; O2SAT 98
--- NOTE | 2024-05-26 00:01 | ECG_ITS ---
APPROVED REPORT Exam: Resting ECG HR:73 bpm ECG Measurements Heart Rate 73 AXES NE 141 P 36 QRSd 91 QRS 30 QT 421 T 31 QTc 447 Conclusion SINUS RHYTHM NORMAL ECG UNCONFIRMED REPORT Electronically signed by : FRIDA KEN, 05/26/2024 06:27:42
[2024-05-28 03:36] LABS: HCV Ab Non Reactive (Non Reactive)
== END 2024-05-26 00:06 | disposition home or self-care (01) ==
PROVIDERS: Emergency Provider Emergency Medicine; PCP Nurse Practitioner
DX: R07.9 Chest pain, unspecified (principal); R05.9 Cough, unspecified
CPT/HCPCS: 71046; 80053; 84484; 84703; 85025; 85378; 86803; 87389; 93005; 99284

== ENCOUNTER 2024-07-31 12:02 | Emergency (ER) | payer OTHER, SELFPAY ==
[2024-07-31 12:45] VITALS: BP 138/80; PULSE 100; RESP 21; TEMP 37.7; O2SAT 99; BMI 47.9
[2024-07-31 13:08] LABS: UTC Influenza A Antigen Negative (Negative); UTC Influenza B Antigen Negative (Negative)
--- NOTE | 2024-07-31 13:33 | EXP.UTC ---
Discharge Plan Disposition Patient Disposition: Home, Self-Care Condition: Good Prescriptions Prescriptions: No Action citalopram [Celexa] 10 mg tablet 10 mg PO DAILY Qty: 30 1RF Referrals Follow up/Referrals: Jose Alfredo Chinchilla MD [Primary Care Provider] - See instructions Activity Restrictions/Add. Instructions Additional Instructions/Restrictions: *Monitor Temp, Over the counter Motrin or Tylenol as directed/as needed Tylenol every 4 hours and Motrin every 6 hours (as long as your family doctor has told you that you can take it) for fever or pain. and straight to ER if unable to lower temp less than 101.0 after medication given *Warm salt water gargles may help to soothe the throat *Throat Lozenges? *Warm fluids like tea with honey may help to soothe the throat? *Sleep elevated *Humidifier/Vaporizer Follow up IMMEDIATELY for new or worsening symptoms or no Noticeable improvement over the next 48-72 hours. 911 for difficulty breathing or swallowing You were tested for today for Mini Panel that includes COVID19, Influenza A&B, Rhino Virus, and RSV your test result should be back in the next few hours, you may check your results on the [facility] [employer] Health Portal Clinical Impressions Clinical Impression: Viral syndrome Stand Alone Forms Stand Alone Forms: Work/School Release Instructions Patient Instructions: DI for Viral Syndrome, DI for Fever (Symptom) -- Adult Print Language Print Language: Stateless Discharge ED Provider: Megha Díaz [facility] HPI General Stated complaint: congestion, cough, body aches Mode of Arrival: Ambulatory Source of Information: Patient Limitations: No Limitations Time Seen by Provider: 07/31/24 13:33 Description of Symptoms (Recalled from Triage Doc. by RN): PATIENT C/O FEVER, CONGESTION, AND CHILLS SINCE YESTERDAY HEENT Symptoms (Recalled from RN notes): Yes Resp Symptoms (Recalled from RN notes): No Skin Symptoms (Recalled from RN notes): No MS Symptoms (Recalled from RN notes): No Functional Status (Recalled from RN notes): WNL History of Present Illness Provider Complaint: Pt states that she started yesterday with fever, chills, nasal congestion and body aches States feels like she may have the flu so today when she wasnt feeling any better she came in to get checked Related Data Previous Rx's ?Medication ?Instructions ?Recorded citalopram 10 mg tablet (Celexa) 10 mg PO DAILY #30 tabs 07/14/24 Allergies Allergy/AdvReac Type Severity Reaction Status Date / Time No Known Allergies Allergy Verified 07/14/24 08:40 Worker's Comp Is this a Worker's Comp case?: No [facility] Disclaimer: The information contained in this section may have been updated after the patient was seen, as this information can be updated by other users. Medical History (Updated 07/31/24 @ 13:43 by Megha Díaz APRN) Anxiety Irritability and anger Surgical History Tubal ligation status Hx of cholecystectomy H/O lateral meniscus repair of right knee Social History Smoking Status: Never smoker alcohol intake: never current occupational status: employed Travel in the last 8 weeks: None housing: house Have you lived/traveled outside [place] in past 30 days?: No Contact w/someone who lives/traveled outside [place] past 30 days?: No Exposure to someone with infectious disease in past 14 days?: No Do you have a fever (greater than 100.4 F or 38 C)?: No Have you tested positive for COVID-19: No Exposed to someone with COVID-19 in past 14 days?: No Do you have a sore throat?: Yes Do you have a cough?: Yes Do you have any weakness?: No Do you have any diarrhea?: No Are you experiencing any unusual bleeding?: No Do you have any muscle aches/pain?: Yes Do you have any abdominal pain?: No Are you experiencing loss of taste or smell?: No ROS Obtained: Yes All systems reviewed & no additional complaints except as documented and Yes Systems reviewed as appropriate & no additional complaints except as documented Constitutional Constitutional: Reports system reviewed and no additional complaints, except as documented, Reports as per HPI, Reports body ache, Reports fever(s) and Reports headache(s) ENT Ears, Nose, Mouth, and Throat: Reports system reviewed and no additional complaints, except as documented, Reports as per HPI and Reports headache(s) Cardiovascular Cardiovascular: Reports system reviewed and no additional complaints, except as documented and Reports as per HPI Respiratory Respiratory: Reports system reviewed and no additional complaints, except as documented, Reports as per HPI and Reports cough Gastrointestinal Gastrointestingal: Reports system reviewed and no additional complaints, except as documented and as per HPI Neurologic Neurologic: Reports headache(s) Physical Exam General General appearance: alert and in no apparent distress ENT ENT exam: Present mucous membranes moist Expanded ENT Exam Nose exam: Absent sinus tenderness Throat exam: Present normal inspection Respiratory Respiratory exam: Present normal lung sounds bilaterally; Absent respiratory distress or wheezes Cardiovascular Cardiovascular exam: Present regular rate, normal rhythm and normal heart sounds Abdominal Exam Abdominal exam: Present soft and normal bowel sounds; Absent distention or tenderness Neurological Exam Neurological exam: Present alert, oriented X3 and normal gait Medical Decision Making Medical Records Screening: Per USPSTF and CDC recommendations, given the prevalence of disease in our region, it is our hospital?s policy to screen for HIV and viral Hepatitis for all patients aged 18 and over and those with ongoing risk factors. Yosi Inquiry Pt receiving controlled substance: No Yosi was queried for this patient: No Vital Signs: 07/31/24 12:45 Temperature 99.8 F H Temperature Source Oral Pulse Rate [Left Brachial] 100 H Respiratory Rate 21 Blood Pressure [Left Arm] 138/80 Blood Pressure Mean [Left Arm] 99 Blood Pressure Source [Left Arm] Automatic Cuff Blood Pressure Position [Left Arm] Sitting 02 Sat by Pulse Oximetry 99 Oxygen Delivery Method Room Air Lab Data Lab results reviewed: Yes I reviewed the patient's lab results. Lab Results 07/31/24 12:53: Influenza Type A Ag Negative, Influenza Type B Ag Negative
[2024-07-31 13:44] VITALS: BP 138/80; PULSE 100; RESP 21; TEMP 37.7; O2SAT 99
[2024-07-31 13:50] LABS: Coronavirus 19, PCR Not Detected (NotDetected); Human Rhinovirus Not Detected (NotDetected); Influenza A, PCR Not Detected (NotDetected); Influenza B, PCR Not Detected (NotDetected); Respiratory Syncytial Virus Not Detected (NotDetected)
== END 2024-07-31 13:49 | disposition home or self-care (01) ==
PROVIDERS: Emergency Provider Nurse Practitioner; PCP Family Medicine
DX: B34.9 Viral infection, unspecified (principal)
CPT/HCPCS: 87631; 87804; 99212; G0381

== ENCOUNTER 2024-08-01 15:30 | Emergency (ER) | payer OTHER, SELFPAY ==
[2024-08-01 16:47] VITALS: BMI 47.9
[2024-08-01 16:51] VITALS: BP 162/93; PULSE 105; RESP 18; TEMP 38.4; O2SAT 99; BMI 47.9
--- NOTE | 2024-08-01 16:56 | ED_ITS ---
Discharge Plan Disposition Patient Disposition: Home, Self-Care Condition: Good Prescriptions Prescriptions: New prednisone 20 mg tablet 20 mg PO BID 3 Days Qty: 6 0RF amoxicillin 875 mg tablet 875 mg PO Q12H Qty: 20 0RF pfigaropwyagqvg-[id number]-[id number] [Bromfed DM] 2-30-10 mg/5 mL Syrup 5 ml PO Q6H PRN (Reason: Cough) Qty: 240 0RF No Action citalopram [Celexa] 10 mg tablet 10 mg PO DAILY Qty: 30 1RF Referrals Follow up/Referrals: Jose Alfredo Chinchilla MD [Primary Care Provider] - See instructions Activity Restrictions/Add. Instructions Additional Instructions/Restrictions: Drink plenty of fluids. Take tylenol or ibuprofen for pain or fever. Take the medications as directed. Follow up with your regular doctor. GO TO THE ER FOR ANY WORSENING SYMPTOMS Clinical Impressions Clinical Impression: Strep pharyngitis Stand Alone Forms Stand Alone Forms: Work/School Release Instructions Patient Instructions: Strep Throat, DI for Strep Throat Print Language Print Language: Bulgarian Discharge ED Provider: Jonnie Taylor [facility] General Stated complaint: sore throat,body aches,fever 101.5 Mode of Arrival: Ambulatory Source of Information: Patient Time Seen by Provider: 08/01/24 16:56 Description of Symptoms (Recalled from Triage Doc. by RN): FEVER, SORE THROAT, BA, WAS SEEN HERE YESTERDAY AND EVERYTHING WAS NEG HEENT Symptoms (Recalled from RN notes): Yes Resp Symptoms (Recalled from RN notes): Yes Skin Symptoms (Recalled from RN notes): No MS Symptoms (Recalled from RN notes): No Functional Status (Recalled from RN notes): WNL Related Data Previous Rx's ?Medication ?Instructions ?Recorded citalopram 10 mg tablet (Celexa) 10 mg PO DAILY #30 tabs 07/14/24 amoxicillin 875 mg tablet 875 mg PO Q12H #20 tabs 08/01/24 aswyetqglkntxuo-llmdcvufyclmsfk-IY 5 ml PO Q6H PRN Cough #240 mL 08/01/24 2 mg-30 mg-10 mg/5 mL oral syrup (Bromfed DM) prednisone 20 mg tablet 20 mg PO BID 3 days #6 tabs 08/01/24 Allergies Allergy/AdvReac Type Severity Reaction Status Date / Time No Known Allergies Allergy Verified 08/02/24 07:40 Worker's Comp Is this a Worker's Comp case?: No [facility] Disclaimer: The information contained in this section may have been updated after the patient was seen, as this information can be updated by other users. Medical History Anxiety Irritability and anger Surgical History Tubal ligation status Hx of cholecystectomy H/O lateral meniscus repair of right knee Social History Smoking Status: Never smoker alcohol intake: never current occupational status: employed Travel in the last 8 weeks: None housing: house Have you lived/traveled outside [place] in past 30 days?: No Contact w/someone who lives/traveled outside [place] past 30 days?: No Exposure to someone with infectious disease in past 14 days?: No Do you have a fever (greater than 100.4 F or 38 C)?: Yes Have you tested positive for COVID-19: No Exposed to someone with COVID-19 in past 14 days?: No Do you have a sore throat?: Yes Do you have a cough?: No Do you have any weakness?: No Do you have any diarrhea?: No Are you experiencing any unusual bleeding?: No Do you have any muscle aches/pain?: Yes Do you have any abdominal pain?: No Are you experiencing loss of taste or smell?: No ROS Obtained: Yes All systems reviewed & no additional complaints except as documented Constitutional Constitutional: Reports chills and Reports fever(s) Eyes Eyes: Denies eye discharge ENT Ears, Nose, Mouth, and Throat: Reports as per HPI Cardiovascular Cardiovascular: Denies chest pain Respiratory Respiratory: Denies chest congestion and Reports cough Gastrointestinal Gastrointestingal: Reports nausea; Denies abdominal pain, constipation, cramping, diarrhea or vomiting Musculoskeletal Musculoskeletal: Denies arthralgias Integumentary/Breasts Skin/Breast: Denies rash Neurologic Neurologic: Denies paresthesias Physical Exam General General appearance: alert and in no apparent distress Head Head exam: atraumatic, normocephalic and normal inspection Eye Eye exam: Present normal appearance, PERRL and EOMI ENT ENT exam: Present mucous membranes moist and normal external ear exam Expanded ENT Exam TM/Canal exam: Bilateral TM: erythema and bulging Nose exam: Absent sinus tenderness Mouth exam: Present normal external inspection; Absent drooling Teeth exam: Present normal inspection Throat exam: Present tonsillar erythema, tonsillomegaly and tonsillar exudate Neck Neck exam: Present normal inspection, full ROM and trachea midline; Absent tenderness, meningismus or lymphadenopathy Chest Chest inspection: Present normal inspection and symmetric chest wall rise; Absent tenderness Respiratory Respiratory exam: Present normal lung sounds bilaterally; Absent respiratory distress, wheezes, stridor or accessory muscle use Cardiovascular Cardiovascular exam: Present regular rate and normal rhythm; Absent systolic murmur or diastolic murmur Abdominal Exam Abdominal exam: Present soft and normal bowel sounds; Absent distention, tenderness, guarding, rebound or rigidity Extremities Exam Extremities exam: Present normal inspection and normal capillary refill; Absent calf tenderness Back Exam Back exam: Present normal inspection and full ROM; Absent tenderness, CVA tenderness (R) or CVA tenderness (L) Neurological Exam Neurological exam: Present alert, oriented X3 and CN II-XII intact Psychiatric Psychiatric exam: Present normal affect and normal mood Skin Skin exam: Present warm, dry, intact and normal color Medical Decision Making Medical Records Medical records reviewed: No I reviewed the patient's medical records. Screening: Per USPSTF and CDC recommendations, given the prevalence of disease in our region, it is our hospital?s policy to screen for HIV and viral Hepatitis for all patients aged 18 and over and those with ongoing risk factors. [place] Inquiry Pt receiving controlled substance: No Vital Signs: 08/01/24 16:51 Temperature 101.1 F H Temperature Source Oral Pulse Rate [Left Radial] 105 H Respiratory Rate 18 Blood Pressure [Left Arm] 162/93 H Blood Pressure Mean [Left Arm] 116 02 Sat by Pulse Oximetry 99 Lab Data Lab results reviewed: Yes I reviewed the patient's lab results. Orders (Tests/Meds): ORDERS Category Date Time Status XR chest 2V Stat Exams 08/01/24 16:47 Ordered
[2024-08-01] MEDS: IBUPROFEN 400 MG TABLET 800 MG PO (16:58)
[2024-08-01] MEDS: cefTRIAXone 1GM VIAL 1 GM IM (17:14)
[2024-08-01] MEDS: LIDOCAINE 1% 5ML PF VIAL IM (17:14)
[2024-08-01 17:28] VITALS: BP 162/93; PULSE 105; RESP 18; TEMP 38.3
[2024-08-01 17:31] LABS: UTC Strep Screen (Rapid) Positive (Negative)
== END 2024-08-01 17:31 | disposition home or self-care (01) ==
PROVIDERS: Emergency Provider Nurse Practitioner Family; PCP Family Medicine
DX: J02.0 Streptococcal pharyngitis (principal)
CPT/HCPCS: 87880; 99213; G0381; J0696

== ENCOUNTER 2025-01-03 09:07 | Outpatient (CLI) | payer OTHER, SELFPAY ==
[2025-01-03 17:20] LABS: Hematocrit 44.4 % (37.0-47.0); Hemoglobin 14.4 g/dL (12.2-16.2); Immature Granulocytes % 0.3 %; Mean Corpuscular HGB Conc 32.4 g/dL (31.8-35.4); Mean Corpuscular Hemoglobin 29.3 pg (27.0-31.2); Mean Corpuscular Volume 90.4 fl (81-99); Nucleated Red Blood Cells % 0 %; Platelet Count 235 K/mm3 (142-424); Red Blood Count 4.91 M/mm3 (4.20-5.40); Red Cell Distribution Width-SD 43.6 fL; White Blood Count 6.3 K/mm3 (4.8-10.8)
[2025-01-03 17:56] LABS: Alanine Aminotransferase 42 U/L (12-78); Albumin Level 4.4 g/dl (3.5-5.0); Albumin/Globulin Ratio 1.6 (1.1-1.8); Alkaline Phosphatase 69 U/L (38-126); Anion Gap 17.6 mEq/L (5-15); Aspartate Amino Transferase 42 U/L (14-36); Bilirubin,Total 0.8 mg/dl (0.2-1.3); Blood Urea Nitrogen 10 mg/dl (7-17); Calcium 9.1 mg/dl (8.4-10.2); Carbon Dioxide 24 mmol/L (22.0-30.0); Chloride 101 mmol/L (98-107); Cholesterol 161 mg/dl (140-200); Creatinine,Serum 0.70 mg/dl (0.52-1.04); Estimated Glomerular Filt Rate 97 ml/min (>60); GFR (African American) 117 ML/MIN (>60); Globulin 2.8 g/dL (1.3-3.2); Glucose 67 mg/dl (74-100); HDL Cholesterol 35 mg/dl (40-60); Potassium 4.6 mmoL/L (3.5-5.1); Sodium 138 mmol/L (136-145); Total Protein,Serum 7.2 g/dl (6.3-8.2); Triglycerides 138 mg/dl (30-150)
[2025-01-03 18:15] LABS: Total Cells Counted 100
[2025-01-03 18:16] LABS: Free Thyroxine Index 3.4 ug/dL (5.93-13.13); RBC Morphology Normal; T4 (Thyroxine) 10.6 ug/dl (5.53-11.0); Triiodothryronine (T3) Uptake 32 % (23.5-40.5)
[2025-01-03 18:30] LABS: Thyroid Stimulating Hormone 1.62 uIU/mL (0.465-4.68)
[2025-01-03 18:42] LABS: Vitamin B12 287 pg/mL (239-931)
[2025-01-03 19:22] LABS: Hemoglobin A1C 5.9 % (4.0-6.0)
--- OUTSIDE RECORDS SUMMARY | 2025-01-04 10:05 | XMS_ITS | Data Portability ---
Author Organization [email or web address] [place] [place] - [place] Address [address] [place] [address] Assessment Encounter Date Assessment Date Assessment LastModified by Organization Details LastModified Time 05/07/2023 05/07/2023 Patient presented for medication refill. Patient tolerating medication well at current dose without adverse effects. Refilled as below. Discussed plan with patient, who expressed understanding . Follow up as noted below. [place] [id number] Not available 05/07/2023 17:29:57 Plan of Treatment Reminders Order Date Submit Date Provider Last Modified By Organization Details Last Modified Time Details Appointments None recorded. Lab respiratory infections panel, unspecified specimen 2023 024 [facility], [address] [place] [address], [place], [address], 4 23:10:14 rapid flu (A+B) [address], [address], 4 12:52:01 rapid SARS CoV 2 Ag, QL, [place], upper respiratory specimen [address], [address], 4 12:52:01 rapid flu (A+B) [address], [address] [place] [address], [place], [address], 4 18:08:27 rapid SARS CoV 2 Ag, QL, IA, upper respiratory specimen [address], [address] [place] [address], [place], [address], 4 18:08:27 Referral None recorded. Procedures None recorded. Surgeries None recorded. Imaging None recorded. Medication Orders fluoxetine 20 mg capsule [address] [facility], [address] [place] [address], [id number], 4 17:53:29 fluoxetine 40 mg capsule [address] [facility], [address] [place] [address], [id number], 4 17:53:30 Aplisol 5 tub. unit/0.1 mL intradermal injection solution 2023 024 [email or web address], [address] [place] [address], [id number], 4 09:00:34 phentermine 37.5 mg tablet 2022 023 twiedemer [facility], [address] [place] [address], [id number], 4 09:00:36 fluoxetine 20 mg capsule [address]22 [address] [facility], [address] [place] [address], [id number], 4 09:52:59 fluoxetine 40 mg capsule [address] [facility], [address] [place] [address], [id number], 09:53:00 Patient TargetsNo targets recorded. Patient InstructionsNo instructions recorded. Reason for Referral None Reported. Results Created Date Observation Date Name Description Value Unit Range Abnormal Flag Note LastModifiedBy Organization Detail LastModifiedTime 07/07/19 24 07/07/2023 rapid flu (A+B) Flu A negati ve Not Available [address], [address], 07/07/2023 09:21:22 07/07/19 24 07/07/2023 rapid flu (A+B) Flu B negati ve Not Available [address], [address], 07/07/2023 09:21:22 07/07/19 24 07/07/2023 rapid SARS CoV 2 Ag, QL, IA, upper respi rator y speci men SARS CoV Ag positi ve Not Available [address], [address], 07/07/2023 09:21:24 02/11/20 24 02/14/2024 RESPI RATOR Y PANEL W/ SARS- COV2 adenovirus Not Detect ed not detect ed Not Available [facility] ([facility]) [address] [place], [address], 02/14/2024 10:06:37 02/11/20 24 02/14/2024 RESPI RATOR Y PANEL W/ SARS- COV2 coronavirus hku1 Not Detect ed not detect ed Not Available [facility] ([facility]) [address] [place], [address], 02/14/2024 10:06:37 02/11/20 24 02/14/2024 RESPI RATOR Y PANEL W/ SARS- COV2 coronavirus nl63 Not Detect ed not detect ed Not Available [facility] ([facility]) [address] [place], [address], 02/14/2024 10:06:37 02/11/20 24 02/14/2024 RESPI RATOR Y PANEL W/ SARS- COV2 coronavirus 229E Not Detect ed not detect ed Not Available [facility] ([facility]) [address] [facility], [place], [address], 02/14/2024 10:06:37 02/11/20 24 02/14/2024 RESPI RATOR Y PANEL W/ SARS- COV2 coronavirus oc43 Not Detect ed not detect ed Not Available [facility] ([facility]) [address] [facility], [place], [address], 02/14/2024 10:06:37 02/11/20 24 02/14/2024 RESPI RATOR Y PANEL W/ SARS- COV2 sars-cov-2 Not Detect ed not detect ed Not Available [facility] ([facility]) [address] [facility], [place], [address], 02/14/2024 10:06:37 02/11/20 24 02/14/2024 RESPI RATOR Y PANEL W/ SARS- COV2 human metapneumovi jono Not Detect ed not detect ed Not Available [facility] ([facility]) [address] [facility], [place], [address], 02/14/2024 10:06:37 02/11/20 24 02/14/2024 RESPI RATOR Y PANEL W/ SARS- COV2 human rhinovirus/e nterovirus Detect ed not detect ed abnormal Not Available [facility] ([facility]) [address] [facility], [place], [address], 02/14/2024 10:06:37 02/11/20 24 02/14/2024 RESPI RATOR Y PANEL W/ SARS- COV2 influenza A Not Detect ed not detect ed Not Available [facility] ([facility]) [address] [place], [address], 02/14/2024 10:06:37 02/11/20 24 02/14/2024 RESPI RATOR Y PANEL W/ SARS- COV2 influenza A/H1 Not Detect ed not detect ed Not Available [facility] ([facility]) [address] [facility], [place], [address], 02/14/2024 10:06:37 02/11/20 24 02/14/2024 RESPI RATOR Y PANEL W/ SARS- COV2 influenza A/H1-2009 Not Detect ed not detect ed Not Available [facility] ([facility]) [address] [facility], [place], [address], 02/14/2024 10:06:37 02/11/20 24 02/14/2024 RESPI RATOR Y PANEL W/ SARS- COV2 influenza A/H3 Not Detect ed not detect ed Not Available [facility] ([facility]) [address] [facility], [place], [address], 02/14/2024 10:06:37 02/11/20 24 02/14/2024 RESPI RATOR Y PANEL W/ SARS- COV2 influenza B Not Detect ed not detect ed Not Available [facility] ([facility]) [address] [facility], [place], [address], 02/14/2024 10:06:37 02/11/20 24 02/14/2024 RESPI RATOR Y PANEL W/ SARS- COV2 parainfluenz a 1 Not Detect ed not detect ed Not Available [facility] ([facility]) [address] [facility], [place], [address], 02/14/2024 10:06:37 02/11/20 24 02/14/2024 RESPI RATOR Y PANEL W/ SARS- COV2 parainfluenz a 2 Not Detect ed not detect ed Not Available [facility] ([facility]) [address] [facility], [place], [address], 02/14/2024 10:06:37 02/11/20 24 02/14/2024 RESPI RATOR Y PANEL W/ SARS- COV2 parainfluenz a 3 Not Detect ed not detect ed Not Available [facility] ([facility]) [address] [facility], [place], [address], 02/14/2024 10:06:37 02/11/20 24 02/14/2024 RESPI RATOR Y PANEL W/ SARS- COV2 parainfluenz a 4 Not Detect ed not detect ed Not Available [facility] ([facility]) [address] [facility], [place], [address], 02/14/2024 10:06:37 02/11/20 24 02/14/2024 RESPI RATOR Y PANEL W/ SARS- COV2 respiratory syncytial virus Not Detect ed not detect ed Not Available [facility] ([facility]) [address] [facility], [place], [address], 02/14/2024 10:06:37 02/11/20 24 02/14/2024 RESPI RATOR Y PANEL W/ SARS- COV2 bordetella parapertussi s Not Detect ed not detect ed Not Available [facility] ([facility]) [address] [place], [address], 02/14/2024 10:06:37 02/11/20 24 02/14/2024 RESPI RATOR Y PANEL W/ SARS- COV2 bordetella pertussis Not Detect ed not detect ed Not Available [facility] ([facility]) [address] [place], [address], 02/14/2024 10:06:37 02/11/20 24 02/14/2024 RESPI RATOR Y PANEL W/ SARS- COV2 chlamydophil a pneumoniae Not Detect ed not detect ed Not Available [facility] ([facility]) [address] [place], [address], 02/14/2024 10:06:37 02/11/20 24 02/14/2024 RESPI RATOR Y PANEL W/ SARS- COV2 mycoplasma pneumoniae Not Detect ed not detect ed Not Available [facility] ([facility]) [address] [facility], [place], [address], 02/14/2024 10:06:37 02/11/20 24 02/11/2024 rapid SARS CoV 2 Ag, QL, IA, upper respi rator y speci men SARS CoV Ag negati ve Not Available [address], [address], 02/11/2024 11:16:51 02/11/20 24 02/11/2024 rapid flu (A+B) Flu A negati ve Not Available [address], [address], 02/11/2024 11:16:49 02/11/20 24 02/11/2024 rapid flu (A+B) Flu B negati ve Not Available [address], [address], 02/11/2024 11:16:49 02/11/20 24 02/11/2024 XR, chest , 2 view No observ ation record ed. [address], [place], [place], [address], 02/12/2024 15:05:45 02/11/20 24 02/11/2024 CT, chest , w/o contr ast No observ ation record ed. [address], [place], [address], 02/12/2024 15:06:08 02/12/20 24 02/11/2024 elect maya isaac am No observ ation record ed. [address], [place], [place], [address], 02/12/2024 15:06:31 05/26/20 24 05/25/2024 XR, chest , 2 view No observ ation record ed. [address], [place], [address], 08/30/2024 11:59:09 05/26/20 24 05/26/2024 elect rocar diogr am No observ ation record ed. [address], [place], [address], 08/30/2024 11:59:24 05/26/20 24 05/25/2024 elect rocar diogr am No observ ation record ed. [address], [place], [address], 08/30/2024 11:59:38 Result Notes None recorded. Problems Name Problem SNOMED Code Status Onset Date Resolution Date Notes Provider Name and Address Organization Details Recorded Time Depressi ve disorder 09066138 Active 2023 Kayy duffy, [employer] 4 08:54:07 Fever 341348851 Active 2023 Kayy duffy [employer] 4 11:16:33 Vitamin B deficien cy 89475968 Active 2020 Problem Code: E53.9; Problem Code Type: ICD-10; Not Available [facility] 2 21:06:13 Obesity 079573291 Active 2020 Not Available [facility] 2 21:06:13 Vitamin D deficien cy 61314076 Active 2020 Problem Code: E55.9; Problem Code Type: ICD-10; Not Available [facility] 2 21:06:13 Dysthymi a 55427700 Active 2019 Problem Code: F34.1; Problem Code Type: ICD-10; Not Available [facility] 2 21:06:13 Chronic fatigue syndrome 09031135 Active 2019 Problem Code: R53.82; Problem Code Type: ICD-10; Not Available [facility] 2 21:06:13 General examinat ion of patient Completed 202009/11/2022 MARISSA AZULNER [employer] 3 08:03:00 Medical examinat ion for suspecte d conditio n Completed 202009/11/2022 Problem Code: Z03.89; Problem Code Type: ICD-10; MARISSA AZULNER [employer], [employer] 3 08:03:00 Suspecte d respirat ory disease 843105146 Completed 202009/11/2022 MARISSA AZULNER [employer] [employer] 3 08:03:00 Exposure to SARS-CoV -2 Completed 202009/11/2022 Problem Code: Z20.822; Problem Code Type: ICD-10; MARISSA AZULNER [employer], [employer] 3 08:03:00 Body mass index 40+ - severely obese 312600684 Completed 202005/20/2021 Not Available [facility] 2 21:06:14 Finding of body mass index 911840168 Completed 201904/23/2021 Problem Code: Z68.41; Problem Code Type: ICD-10; Not Available [facility] 2 21:06:14 Body mass index 40+ - severely obese 908090397 Active 2020 Not Available [facility] 2 21:06:14 Dyspnea 406364523 Completed 202009/11/2022 Problem Code: R06.00; Problem Code Type: ICD-10; MARISSA AZULNER [employer] 3 08:03:00 Examinat ion for suspecte d tubercul osis Completed 202004/10/2021 Problem Code: V71.2; Problem Code Type: ICD-9; Not Available [facility] 2 21:06:15 Problem Notes None recorded. Procedures Surgical History Date Name Laterality Status Provider Name and Address Organization Details Recorded Time 07/08/19 cholecystectomy completed Not Available [facility] 03/04/2022 22:56:03 Gallbladder Surgery completed MARISSA AZULNER [employer] 09/11/2022 08:01:58 ligation of fallopian tube completed Kayy Hayeslly [employer] 01/20/2023 17:07:18 Imaging Results None recorded. Procedure Notes None recorded. Medical Equipment None Reported. Allergies No known drug allergies Medications Name Sig Start Date Stop Date Status Note LastModified by Organization Details LastModified Time fluoxetine 40 mg capsule TAKE 1 CAPSULE 1 TIME EACH DAY WITH 20 MG CAPSULE active Not Available Not Available No t Available azithromyci n 250 mg tablet TAKE 2 TABLETS 1 TIME EACH DAY FOR 2 DAYS active Not Available Not Available No t Available citalopram 10 mg tablet TAKE 1 TABLET 1 TIME EACH DAY active Not Available Not Available No t Available hydrocodone 5 mg-acetamin ophen 325 mg tablet 01/20 completed Not Available Not Available Not Available Aplisol 5 tub. unit/0.1 mL intradermal injection solution Inject 0.1 mL by intraderm al route. 01/28 completed Not Available Not Available Not Available phentermine 37.5 mg tablet TAKE 1 TABLET 1 TIME EACH DAY 01/28 completed Not Available Not Available Not Available amoxicillin 875 mg tablet TAKE 1 TABLET 2 TIMES EACH DAY FOR 10 DAYS active Not Available Not Available No t Available bromphenira mine-pseudo ephedrine-D M 2 mg-30 mg-10 mg/5 mL oral syrup TAKE 5 ML (1 TEASPOONF UL) EVERY 6 HOURS NEEDED FOR COLD SYMPTOMS active Not Available Not Available No t Available fluoxetine 20 mg capsule TAKE 1 CAPSULE 1 TIME EACH DAY WITH 40 MG CAPSULE active Not Available Not Available No t Available amoxicillin 875 mg-potassiu m clavulanate 125 mg tablet TAKE 1 TABLET EVERY 12 HOURS FOR 10 DAYS active Not Available Not Available No t Available bupropion HCl XL 150 mg 24 hr tablet, extended release Take 1 tablet every day by oral route. 10/09 completed Not Available Not Available Not Available l.norgest-e th.estradio l triphasic 50-30 (6)/75-40(5 )/125-30(10 ) tablet TAKE 1 TABLET 1 TIME EACH DAY 09/11 completed Not Available Not Available Not Available fluoxetine 60 mg tablet Take 1 tablet every day by oral route. 05/07 completed Not Available Not Available Not Available Vitals Date Recorded Body height Body mass index (BMI) Body weight Heart rate Oxygen saturation Oxygen saturation in Arterial blood by Pulse oximetry Systolic And Diastolic Provider Name and Address Organization Details Last Updated DateTime 4 167.64 cm 50.3 kg/m2 045248. 33 g 82 /min 98 % 98 % 111/77 mm[Hg] [employer] 4 09:21:07 Date Recorded Body height Body mass index (BMI) Body weight Heart rate Oxygen saturation Oxygen saturation in Arterial blood by Pulse oximetry Systolic And Diastolic Provider Name and Address Organization Details Last Updated DateTime 4 167.64 cm 51 kg/m2 109696. 59 g 75 /min 98 % 98 % 118/83 mm[Hg] [employer] 4 09:00:30 Date Recorded Body height Body mass index (BMI) Body weight Heart rate Oxygen saturation Oxygen saturation in Arterial blood by Pulse oximetry Systolic And Diastolic Provider Name and Address Organization Details Last Updated DateTime 4 167.64 cm 50.9 kg/m2 545295. 7 g 87 /min 97 % 97 % 115/81 mm[Hg] [employer] 4 11:34:34 Date Recorded Body height Body mass index (BMI) Body weight Heart rate Oxygen saturation Oxygen saturation in Arterial blood by Pulse oximetry Systolic And Diastolic Provider Name and Address Organization Details Last Updated DateTime 3 167.64 cm 49.3 kg/m2 103311. 47 g 84 /min 97 % 97 % 112/78 mm[Hg] [employer] 3 17:09:01 Social History Question Answer Notes LastModified by Organizat ion Details LastModified Time Tobacco Smoking Status Former Smoker [facility]i [facility]uffy, [employer]22 09:59:15 Do You Have An Advance Directive? No [email or web address] Information not available 09/11/2022 Is Your Home Air Conditioned? Yes Information not available 09/11/2022 Do You Wear A Helmet When Biking? No [email or web address] Information not available 09/11/2022 Are You Blind Or Do You Have Difficulty Seeing? No Information not available 09/11/2022 What Is Your Level Of Caffeine Consumption? Moderate [email or web address] Information not available 09/11/2022 What Type Of Lab Director Do You Use? [employer] [email or web address] Information not available 09/11/2022 In The 14 Days Before Symptom Onset, Have You Had Close Contact With A Laboratory-confi rmed COVID-19 While That Case Was Ill? No [email or web address] Information not available 09/11/2022 In The 14 Days Before Symptom Onset, Have You Had Close Contact With A Person Who Is Under Investigation For COVID-19 While That Person Was Ill? No [email or web address] Information not available 09/11/2022 Have You Been To An Area Known To Be High Risk For COVID-19? No [email or web address] Information not available 09/11/2022 Are You Deaf Or Do You Have Serious Difficulty Hearing? No [email or web address] Information not available 09/11/2022 What Type Of Diet Are You Following? REGULAR [email or web address] Information not available 09/11/2022 Who Is Your Employer? [employer] [email or web address] Information not available 09/11/2022 Have There Been Any Changes To Your Family Or Social Situation? No [email or web address] Information not available 09/11/2022 Are There Any Guns Present In Your Home? Yes [email or web address] Information not available 09/11/2022 Which Of Your Hands Is Dominant? Right [email or web address] Information not available 09/11/2022 What Is Your Home Situation? Other [email or web address] Information not available 09/11/2022 Do You Have A Medical Power Of Nursing Staff Development Coordinator? No [email or web address] Information not available 09/11/2022 What Was The Date Of Your Most Recent Tobacco Screening? 02/11/2024 [email or web address] Information not available 02/11/2024 Are There Any Occupational Health Risks Where You Work? No [email or web address] Information not available 09/11/2022 What Is Your Current Pack Years? 10packyears [email or web address] Information not available 09/11/2022 Do You Have Any Pets? Yes [email or web address] Information not available 09/11/2022 Do You Use Protection During Sex? No [email or web address] Information not available 09/11/2022 What Is Your Relationship Status? [email or web address] Information not available 09/11/2022 Have You Repeated Any Grades? No [email or web address] Information not available 09/11/2022 Do You Use Your Seat Belt Or Car Seat Routinely? No [email or web address] Information not available 09/11/2022 Are You Sexually Active? Yes [email or web address] Information not available 09/11/2022 Do You Have Any Siblings? Yes [email or web address] Information not available 09/11/2022 Do You Have Smoke And Carbon Monoxide Detectors In Your Home? Yes [email or web address] Information not available 09/11/2022 Are You Passively Exposed To Smoke? No [email or web address] Information not available 09/11/2022 Are There Any Smokers In Your House? Yes [email or web address] Information not available 09/11/2022 Do You Use Sunscreen Routinely? Yes [email or web address] Information not available 09/11/2022 Have You Recently Traveled Abroad? No [email or web address] Information not available 09/11/2022 Do You Have Difficulty Walking Or Climbing Stairs? Yes Information not available 09/11/2022 Are You Currently In School? No [email or web address] Information not available 09/11/2022 Do You Have Any Dietary Restrictions? No [email or web address] Information not available 09/11/2022 Sex: Female Functional Status Question Answer Note LastModified by Organizat ion Details LastModified Time Do you use any illicit or recreational drugs? No [email or web address] Information not available 09/11/2022 Do you or have you ever used any other forms of tobacco or nicotine? No [email or web address] Information not available 09/11/2022 What is your level of alcohol consumption? None [email or web address] Information not available 09/11/2022 Are you currently employed? Yes [email or web address] Information not available 09/11/2022 Are you able to walk? YESWOREST [email or web address] Information not available 09/11/2022 Do you have difficulty doing errands alone? No Information not available 09/11/2022 Are you able to care for yourself? Yes [email or web address] Information n ot available 09/11/2022 Do you have difficulty dressing or bathing? No [email or web address] Information not available 09/11/2022 What is your exercise level? Moderate Information not available 09/11/2022 Mental Status Question Answer Note LastModified by Organizat ion Details LastModified Time Do you feel stressed (tense, restless, nervous, or anxious, or unable to sleep at night)? [id number] Information not available 09/11/2022 Do you have difficulty concentrating, remembering or making decisions? Yes [email or web address] Information no t available 09/11/2022 Are you or have you been involved with bullying? No Information not available 09/11/2022 Family History Relationship Description Onset Age of this Age Resolved Age Notes LastModified by Organization Details LastModified Time Unspecified Relation Family history of diabetes mellitus type 2 [email or web address] Not available 09/11 08:01:56 Unspecified Relation Family history of Hypertension [email or web address] Not available 08:01:57 Father Hypertensive disorder [email or web address] Not available 09/11 08:01:57 Medical History Condition Response Anxiety Disorder Y Depression Y Gynecological History Statement/Question Response Flow Moderate Frequency of Cycle (Q days) 28 Menses Monthly Y Duration of Flow (days) 3-4 Date of Last Pap Smear Age at Menarche 15 Most Recent Mammogram Age at First Child 5 Obstetrics History GPAL:G 0 P 0 0 0 0 Immunizations Vaccine Type Date Status Note Provider Nam e and Address Organization Details Recorded Time MMR 7 completed MARISSA duffy [employer] 09/11/2022 08:02:41 varicella 4 completed MARISSA duffy [employer] 09/11/2022 08:02:41 OPV 7 completed MARISSA duffy, [facility] [employer] 09/11/2022 08:02:41 Td (adult), 2 Lf tetanus toxoid, preservative free, adsorbed 4 completed MARISSA duffy, [employer] [employer] 09/11/2022 08:02:41 DTaP, unspecified formulation 7 completed MARISSA duffy, [employer] 09/11/2022 08:02:41 Past Encounters Encounter ID Performer Location Encounter Start Date Encounter Closed Date Diagnosis/Indication Diagnosis SNOMED-CT Code Diagnosis ICD10 Code Diagnosis Note [id number] [place] [address] 09/11/2022 07:59:09 09/11/2022 08:43:11 Adult health examination 872534458 Z00.00 Difficulty controlling anger 638723115 R45.4 Body mass index 40+ - severely obese 756684873 Z68.42 [id number] [place] [address] 10/09/2022 07:58:35 10/09/2022 08:43:28 Dysthymia 05246233 F34.1 Fatigue 53722413 R53.83 Body mass index 40+ - severely obese 177578808 Z68.42 [id number] [place] [address] 01/20/2023 16:59:07 01/20/2023 17:36:07 Obesity 452015754 E66.9 Long-term drug therapy 878508548 Z79.899 Body mass index 40+ - severely obese 657989979 Z68.42 [id number] [place] [address] 05/07/2023 17:01:01 05/07/2023 17:18:54 Difficulty controlling anger 542466895 R45.4 Obesity 295012432 E66.9 Body mass index 40+ - severely obese 053858519 Z68.42 [id number] [place] [address] 07/07/2023 09:08:37 07/07/2023 10:30:47 Cough 17572134 R05.9 COVID-19 434049086 U07.1 Body mass index 40+ - severely obese 546164901 Z68.42 [id number] [place] [address] 09/02/2023 16:58:39 09/02/2023 17:33:00 Tuberculosis screening 646654192 Z11.1 [id number] [place] [id number] 01/29/2024 08:45:06 01/29/2024 09:24:30 Depressive disorder 21613188 F32.9 Difficulty controlling anger 386432472 R45.4 Fatigue 16237650 R53.83 Body mass index 40+ - severely obese 179956104 Z68.42 [id number] [place] [address] 02/11/2024 10:16:38 02/11/2024 12:21:19 Fever 040934984 R50.9 Viral resp iratory infection 893216427 J06.9 Body mass index 40+ - severely obese 264751047 Z68.42 Health Concerns Section Related Observation LastModified by Organization Detai ls LastModified Time None Recorded Concern Status LastModified by Organization Details LastModified Time None Recorded Advance Directives Directive N: Payers Insurance Date Sequence Insurance Name Policy Number Policy Murphy Covered Member ID Murphy Member ID Guarantor Name 07/06/2023 1 [employer]: LEE ANN SOTO OF [place] Korin Deutsch [id number] Korin Boucher 07/30/2024 1 [facility] [facility] Yon Boucher [id number] Korin Boucher 09/11/2022 1 *SELF PAY* [place] Notes Date Note Type Note Provider Name and Address Organization Details Recorded Time 05/07/2023 text/html pt here today fo r medication refills. pt states shes doing well on current medication regime and has no new complaints today. pt states that she couldnt get back in here for a f/u for the weigh in, however pt has lost 5 lbs since last visit. pt states that she has been trying to lose wt with diet. Rosalvamanny Wallace APRN [address] [place], [address], [employer]. 05/07/2023 17:33:22 07/07/2023 text/html pt here today with c/o cough x2 days. pt states that she took an at home covid test on thursday and it was positive. rapid covid positive. pt to quarantine x5 days, rest, increase fluids, tylenol/ibuprofen for pain, mucinex for cough, vit d, c, zinc, ER for soa. Rosalva Wallace APRN [address] [place], [address], [employer]. 07/07/2023 09:53:35 01/29/2024 text/html pt here today fo r medication refills. pt states shes doing well on current medication regime and has no new complaints today. Rosalva JEANNE Wallace [address] [place], [address], Mr. Number, [employer]. 01/30/2024 11:36:41 02/11/2024 text/html pt here today with c/o fever that started last night. 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 rapid covid and flu neg. assessment WNL. pt states that her had PNA. gave pt home covid testing and advised pt to test again on sat if she was still having symptoms. if pt feels worse and is neg for covid over the weekend to call back on thursday and i wouldn send in abx to cover PNA. but today i dont see anything infectious. Rosalva Wallace APRN [address] [facility], [place], [address], [facility] [place]. 02/11/2024 12:47:12 OBGyn Episode No OBEpisode recorded.
--- OUTSIDE RECORDS SUMMARY | 2025-01-04 10:05 | XMS_ITS | Clinical Summary ---
Author Organization Healthcare Address [address] [place] [address] Care Team Providers Care Wine Sales Representative Name Role Phone Brian Stephenson MD Primary Care Provider [phone] Family History Medical History Relation Name Comments Cardiac disorder Father Diabetes Father Cardiac disorder Mother Hypertension Mother Stroke Other 1 Hypertension Other 2 Relation Name Status Comments Father Mother Other 1 Other 2 Social History Tobacco Use Types Packs/Day Years Used Date Smoking Tobacco: Never Comments Unknown Sex and Gender Information Value Date Recorded Sex Assigned at Not on file Legal Sex Female 6:59 PM EDT Gender Identity Not on file Sexual Orientation Not on file Last Filed Vital Signs Vital Sign Reading Time Taken Comments Blood Pressure 119/79 09/28/2020 9:31 AM EDT Pulse 81 09/28/2020 9:31 AM EDT Temperature - - Respiratory Rate - - Oxygen Saturation - - Inhaled Oxygen Concentration - - Weight 137 kg (302 lb 7.5 oz) 09/28/2020 9:31 AM EDT Height 167.6 cm (5' 6 ) 09/28/2020 9:31 AM EDT Body Mass Index 48.82 09/28/2020 9:31 AM EDT Plan of Treatment Not on file Care Teams Wine Sales Representative Relationship Specialty Start Date End Date Brian Stephenson MD [address] [facility] [address] [place] [address] PCP - General 11/09/20
[2025-01-05 08:13] LABS: Hepatitis B Surface Antigen Negative (Negative)
== END 2025-01-03 23:59 | disposition home or self-care (01) ==
LOC: LAB.DROPOF 01-04 09:55
PROVIDERS: PCP Nurse Practitioner Family; Visit Provider Nurse Practitioner Family
DX: E66.9 Obesity, unspecified (principal); R53.83 Other fatigue; R51.9 Headache, unspecified; Z11.59 Encounter for screening for other viral diseases
CPT/HCPCS: 80053; 80061; 82607; 83036; 84436; 84443; 84479; 85007; 85025; 85027; 87340

== ENCOUNTER 2025-02-16 15:55 | Emergency (ER) | payer OTHER, SELFPAY ==
--- OUTSIDE RECORDS SUMMARY | 2018-08-18 09:00 | XMS_ITS | Encounter Summary ---
Author Organization [facility] Address [address] [place] [address] Care Team Providers Care Sales Manager Name Role Phone Romy Dubose Primary Care Provider [phone] Reason for Visit * Diagnostic Imaging (Routine) - Canceled Specialty Diagnoses / Procedures Referred By Contac t Referred To Contact Radiology Diagnoses Dichorionic diamniotic twin in second trimester High-risk in third trimester Procedures US Biophysical Profile;Without Non-Stress Testing Jerrica Jeffery MD [address] [facility] [address] [place] [address] Phone: tel: fax: [facility] Phone: tel: Referral ID Status Reason Start Date Expiration Date V isits Requested Visits Authorized [id number] Canceled 08/11/2018 08/11/2019 1 1 Encounter Details Date Type Department Care Team ([facility] st Contact Info) Description 08/18/2018 8:00 AM EST Hospital Encounter [facility] [phone] Social History Tobacco Use Types Packs/Day Years Used Date Smoking Tobacco: Former Cigarettes 1 8.6 2 - 01/2018 Smokeless Tobacco: Never Alcohol Use Standard Drinks/Week Comments No 0 (1 standard drink = 0.6 oz pur e alcohol) [place] Depression Scale Answer Date Recorded Retired [place] Depression Score 0 09/22/2018 Retired EPD Scale: Thought of Harming Self Unrec ognized value 09/22/2018 Comments No Sex and Gender Information Value Date Recorded Sex Assigned at Not on file Legal Sex Female 1:31 PM EDT Gender Identity Not on file Sexual Orientation Not on file 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 Not on file Not on file documented as of this encounter Plan of Treatment Not on file documented as of this encounter Procedures Procedure Name Priority Date/Time Associated Diagnosis Comments US BIOPHYSICAL PROFILE;WITHOUT NON-STRESS TESTING Routine 08/18/2018 8:57 AM EST Dichorionic diamniotic twin in second trimester High-risk in third trimester documented in this encounter Results * US Biophysical Profile;Without Non-Stress Testing (08/18/2018 8:57 AM EST) Anatomical Region Laterality Modality Body Ultrasound 08/18/2018 8:18 AM EST Narrative 08/18/2018 5:21 PM EST PAT NAME: KORIN GUTIERREZ [facility] REC#: [id number] DA: [id number] PAT GEND: F PAT TYPE: O EXAM INNA: [id number] REF PHYS JERRICA JEFFERY Indication ======== Twin gestation, DC/DA, both female Method ====== Transabdominal ultrasound examination. View: Sufficient ========= Twin . Dichorionic-diamniotic. Number of fetuses: 2. Dating ====== Method of dating: based on the external assessment GA by stated dating 33 w + 2 d JAVY by stated dating : 10/04/2018 Assigned: Dating performed on 08/18/2018, based on the external assessment Assigned GA 33 w + 2 d Assigned JAVY: 10/04/2018 General Evaluation Cardiac activity present. FHR 147 bpm. movements visualized. Presentation cephalic. Placenta Placental site: anterior. Amniotic Fluid Assessment Amount of AF: normal MVP 5.8 cm Biophysical Profile 2: breathing movements 2: Gross body movements 2: tone 2: Amniotic fluid volume 02/03: Biophysical profile score General Evaluation Cardiac activity present. FHR 159 bpm. movements visualized. Presentation breech. Placenta Placental site: anterior. Amniotic Fluid Assessment Amount of AF: normal MVP 8.8 cm Biophysical Profile 2: breathing movements 2: Gross body movements 2: tone 2: Amniotic fluid volume 02/03: Biophysical profile score Auto Care Center Manager Comments Baby A is cephalic and on maternal left. Baby B is breech and on maternal right with head in maternal RUQ. Impression ========= Normal BPP for both fetuses Recommendation Continue the routine schedule of testing for the condition being monitored. [facility] Manager: Chandni Mistry RDMS Physician: Megha Tracy MD Electronically signed by: Megha Tracy MD at: 17:21 Procedure Note Megha Tracy MD - 08/18/2018 PAT NAME: KORIN GUTIERREZ MED REC#: [id number] DA: [id number] PAT GEND: F PAT TYPE: O EXAM INNA: [id number] REF PHYS JERRICA JEFFERY Indication ======== Twin gestation, DC/DA, both female Method ====== Transabdominal ultrasound examination. View: Sufficient ========= Twin . Dichorionic-diamniotic. Number of fetuses: 2. Dating ====== Method of dating:based on the external assessment GA by stated dating 33 w + 2 d JAVY by stated dating :10/04/2018 Assigned:Dating performed on 08/18/2018, based on the externalassessment Assigned GA33 w + 2 d Assigned JAVY:10/04/2018 General Evaluation Cardiac activity present. FHR 147 bpm. movements visualized. Presentation cephalic. Placenta Placental site: anterior. Amniotic Fluid Assessment Amount of AF: normal MVP 5.8 cm Biophysical Profile 2: breathing movements 2: Gross body movements 2: tone 2: Amniotic fluid volume 8/8: Biophysical profile score General Evaluation Cardiac activity present. FHR 159 bpm. movements visualized. Presentation breech. Placenta Placental site: anterior. Amniotic Fluid Assessment Amount of AF: normal MVP 8.8 cm Biophysical Profile 2: breathing movements 2: Gross body movements 2: tone 2: Amniotic fluid volume 8/8: Biophysical profile score Auto Care Center Manager Comments Baby A is cephalic and on maternal left. Baby B is breech and on maternal right with head in maternal RUQ. Impression ========= Normal BPP for both fetuses Recommendation Continue the routine schedule of testing for the condition beingmonitored. Auto Care [facility] Manager: Chandni Mistry [facility] Physician: Megha Tracy MD Electronically signed by: Megha Tracy MD at: 17:21 us Jerrica Jeffery MD IMG US ORDERABLES Final Re sult documented in this encounter Visit Diagnoses Not on filedocumented in this encounter Care Teams Sales Manager Relationship Specialty Start Date End Date Romy Dubose PA PCP - General Physician Apparel Machinery Instructor 04/01/18 11/22/19 documented as of this encounter
--- OUTSIDE RECORDS SUMMARY | 2018-08-27 14:23 | XMS_ITS | Encounter Summary ---
Author Organization [facility] Address [address] [place] [address] Care Team Providers Care Geotechnical Department Manager Name Role Phone Romy Dubose Primary Care Provider [phone] Reason for Visit * Diagnostic Imaging (Routine) - Canceled Specialty Diagnoses / Procedures Referred By Contac t Referred To Contact Radiology Diagnoses Dichorionic diamniotic twin in second trimester High-risk in third trimester Procedures US Biophysical Profile;Without Non-Stress Testing Jerrica Jeffery MD [address] [facility] [address] [place] [address] Phone: tel: fax: [facility] Phone: tel: Referral ID Status Reason Start Date Expiration Date V isits Requested Visits Authorized [id number] Canceled 08/11/2018 08/11/2019 1 1 Encounter Details Date Type Department Care Team (Late st Contact Info) Description 08/27/2018 1:23 PM EST [facility] [phone] Social History Tobacco Use Types Packs/Day Years Used Date Smoking Tobacco: Former Cigarettes 1 8.6 2 - 01/2018 Smokeless Tobacco: Never Alcohol Use Standard Drinks/Week Comments No 0 (1 standard drink = 0.6 oz pur e alcohol) [place] Depression Scale Answer Date Recorded Retired [place] Depression Score 0 09/22/2018 Retired EPD Scale: Thought of Harming Self Unrec ognized value 09/22/2018 Comments No Sex and Gender Information Value Date Recorded Sex Assigned at Not on file Legal Sex Female 1:31 PM EDT Gender Identity Not on file Sexual Orientation Not on file 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 Not on file Not on file documented as of this encounter Plan of Treatment Not on file documented as of this encounter Procedures Procedure Name Priority Date/Time Associated Diagnosis Comments US BIOPHYSICAL PROFILE;WITHOUT NON-STRESS TESTING Routine 08/27/2018 2:07 PM EST Dichorionic diamniotic twin in second trimester High-risk in third trimester documented in this encounter Results * US Biophysical Profile;Without Non-Stress Testing (08/27/2018 2:07 PM EST) Anatomical Region Laterality Modality Body Ultrasound 08/27/2018 1:31 PM EST Narrative 08/27/2018 4:51 PM EST PAT NAME: KORIN GUTIERREZ [facility] REC#: [id number] DA: [id number] PAT GEND: F PAT TYPE: O EXAM INNA: [id number] REF PHYS JERRICA JEFFERY Indication ======== twins Method ====== [place] E6, Transabdominal ultrasound examination. View: Sufficient ========= Twin . Dichorionic-diamniotic. Number of fetuses: 2. Dating ====== GA by stated dating 34 w + 4 d JAVY by stated dating : 10/04/2018 Method of dating: Restore dating from previous exam Previous dating: Dating performed on 08/18/2018, based on the external assessment Agreed JAVY of previous datin10/04/2018 Assigned: Dating performed on 08/18/2018, based on the external assessment Assigned GA 34 w + 4 d Assigned JAVY: 10/04/2018 General Evaluation Cardiac activity present. FHR 125 bpm. movements visualized. Presentation cephalic. Placenta Placental site: anterior. Amniotic Fluid Assessment Amount of AF: normal MVP 2.3 cm Biophysical Profile 2: breathing movements 2: Gross body movements 2: tone 2: Amniotic fluid volume 02/03: Biophysical profile score General Evaluation Cardiac activity present. FHR 143 bpm. movements visualized. Presentation cephalic. Placenta Placental site: anterior. Amniotic Fluid Assessment Amount of AF: normal MVP 3.6 cm Biophysical Profile 2: breathing movements 0: Gross body movements 2: tone 2: Amniotic fluid volume 12/04: Biophysical profile score Impression ========= Normal BPP twin A Probably normal BPP twin B Recommendation NST is recommended today for twin B Lining Maker: Marguerite Goldsmith RDMS Physician: Jerrica Jeffery MD Electronically signed by: Jerrica Jeffery MD at: 16:51 Procedure Note Jerrica Jeffery MD - 08/27/2018 PAT NAME: KORIN GUTIERREZ MED REC#: [id number] DA: 1990 PAT GEND: F PAT TYPE: O EXAM INNA: [id number] REF PHYS JERRICA JEFFERY Indication ======== twins Method ====== Vol[place]on E6, Transabdominal ultrasound examination. View: Sufficient ========= Twin . Dichorionic-diamniotic. Number of fetuses: 2. Dating ====== GA by stated dating 34 w + 4 d JAVY by stated dating :10/04/2018 Method of dating:Restore dating from previous exam Previous dating:Dating performed on 08/18/2018, based on the externalassessment Agreed JAVY of previous datin10/04/2018 Assigned:Dating performed on 08/18/2018, based on the externalassessment Assigned GA34 w + 4 d Assigned JAVY:10/04/2018 General Evaluation Cardiac activity present. FHR 125 bpm. movements visualized. Presentation cephalic. Placenta Placental site: anterior. Amniotic Fluid Assessment Amount of AF: normal MVP 2.3 cm Biophysical Profile 2: breathing movements 2: Gross body movements 2: tone 2: Amniotic fluid volume 8/8: Biophysical profile score General Evaluation Cardiac activity present. FHR 143 bpm. movements visualized. Presentation cephalic. Placenta Placental site: anterior. Amniotic Fluid Assessment Amount of AF: normal MVP 3.6 cm Biophysical Profile 2: breathing movements 0: Gross body movements 2: tone 2: Amniotic fluid volume 6/8: Biophysical profile score Impression ========= Normal BPP twin A Probably normal BPP twin B Recommendation NST is recommended today for twin B Lining Maker: Marguerite Goldsmith RDMS Physician: Jerrica Jeffery MD Electronically signed by: Jerrica Jeffery MD at: 16:51 us Jerrica Jeffery MD IMG US ORDERABLES Final Re sult documented in this encounter Visit Diagnoses Not on filedocumented in this encounter Care Teams Geotechnical Department Manager Relationship Specialty Start Date End Date Romy Dubose PA PCP - General Physician Professor Of Literacy 04/01/18 11/22/19 documented as of this encounter
--- OUTSIDE RECORDS SUMMARY | 2018-09-03 14:07 | XMS_ITS | Encounter Summary ---
Author Organization [facility] Address [address] [place] [address] Care Team Providers Care Strike Operations Officer Name Role Phone Romy Dubose Primary Care Provider [phone] Reason for Visit * Diagnostic Imaging (Routine) - Canceled Specialty Diagnoses / Procedures Referred By Contac t Referred To Contact Radiology Diagnoses Dichorionic diamniotic twin in second trimester High-risk in third trimester Procedures US Biophysical Profile;Without Non-Stress Testing Jerrica Jeffery MD [address] [facility] [address] [place] [address] Phone: tel: fax: [facility] Phone: tel: Referral ID Status Reason Start Date Expiration Date V isits Requested Visits Authorized [id number] Canceled 08/11/2018 08/11/2019 1 1 Encounter Details Date Type Department Care Team (Late st Contact Info) Description 09/03/2018 1:07 PM EST Hospital Encounter [facility] [phone] Social History Tobacco Use Types Packs/Day Years Used Date Smoking Tobacco: Former Cigarettes 1 8.6 2 01/2018 Smokeless Tobacco: Never Alcohol Use Standard Drinks/Week Comments No 0 (1 standard drink = 0.6 oz pur e alcohol) [place] Depression Scale Answer Date Recorded Retired [place] Depression Score 0 09/22/2018 Retired EPD Scale: Thought of Harming Self Unrec ognized value 09/22/2018 Comments No Sex and Gender Information Value Date Recorded Sex Assigned at Not on file Legal Sex Female 1:31 PM EDT Gender Identity Not on file Sexual Orientation Not on file 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 Not on file Not on file documented as of this encounter Plan of Treatment Not on file documented as of this encounter Procedures Procedure Name Priority Date/Time Associated Diagnosis Comments US BIOPHYSICAL PROFILE;WITHOUT NON-STRESS TESTING Routine 09/03/2018 1:24 PM EST Dichorionic diamniotic twin in second trimester High-risk in third trimester documented in this encounter Results * US Biophysical Profile;Without Non-Stress Testing (09/03/2018 1:24 PM EST) Anatomical Region Laterality Modality Body Ultrasound 09/03/2018 1:10 PM EST Narrative 09/04/2018 7:59 AM EST PAT NAME: KORIN GUTIERREZ [facility] REC#: [id number] DA: [id number] PAT GEND: F PAT TYPE: O EXAM INNA: [id number] REF PHYS JERRICA JEFFERY Indication ======== twins Method ====== Voluson E6, Transabdominal ultrasound examination. View: Sufficient ========= Twin . Dichorionic-diamniotic. Number of fetuses: 2. Dating ====== GA by stated dating 35 w + 4 d JAVY by stated dating : 10/04/2018 Method of dating: Restore dating from previous exam Previous dating: Dating performed on 08/18/2018, based on the external assessment Agreed JAVY of previous datin10/04/2018 Assigned: Dating performed on 08/18/2018, based on the external assessment Assigned GA 35 w + 4 d Assigned JAVY: 10/04/2018 General Evaluation Cardiac activity present. FHR 129 bpm. movements visualized. Presentation cephalic. Placenta Placental site: anterior. Amniotic Fluid Assessment Amount of AF: normal MVP 3.6 cm Biophysical Profile 2: breathing movements 2: Gross body movements 2: tone 2: Amniotic fluid volume /8: Biophysical profile score General Evaluation Cardiac activity FHR 158 bpm. movements visualized. Presentation cephalic. Placenta Placental site: anterior. Amniotic Fluid Assessment Amount of AF: normal MVP 3.5 cm Biophysical Profile 2: breathing movements 2: Gross body movements 2: tone 2: Amniotic fluid volume 8: Biophysical profile score Impression ========= Normal BPP for both twin A & B Recommendation Continue the routine schedule of testing for the condition being monitored. Tipple Supervisor: Marguerite Goldsmith RDMS Physician: Jerrica Jeffery MD Electronically signed by: Jerrica Jeffery MD at: 07:59 Procedure Note Jerrica Jeffery MD - 09/04/2018 PAT NAME: KORIN GUTIERREZ MED REC#: [id number] DA: [id number] PAT GEND: F PAT TYPE: O EXAM INNA: [id number] REF PHYS JERRICA JEFFERY Indication ======== twins Method ====== Voluson E6, Transabdominal ultrasound examination. View: Sufficient ========= Twin . Dichorionic-diamniotic. Number of fetuses: 2. Dating ====== GA by stated dating 35 w + 4 d JAVY by stated dating :10/04/2018 Method of dating:Restore dating from previous exam Previous dating:Dating performed on 08/18/2018, based on the externalassessment Agreed JAVY of previous datin10/04/2018 Assigned:Dating performed on 08/18/2018, based on the externalassessment Assigned GA35 w + 4 d Assigned JAVY:10/04/2018 General Evaluation Cardiac activity present. FHR 129 bpm. movements visualized. Presentation cephalic. Placenta Placental site: anterior. Amniotic Fluid Assessment Amount of AF: normal MVP 3.6 cm Biophysical Profile 2: breathing movements 2: Gross body movements 2: tone 2: Amniotic fluid volume 8/8: Biophysical profile score General Evaluation Cardiac activity FHR 158 bpm. movements visualized. Presentation cephalic. Placenta Placental site: anterior. Amniotic Fluid Assessment Amount of AF: normal MVP 3.5 cm Biophysical Profile 2: breathing movements 2: Gross body movements 2: tone 2: Amniotic fluid volume 8/8: Biophysical profile score Impression ========= Normal BPP for both twin A & B Recommendation Continue the routine schedule of testing for the condition beingmonitored. Tipple Supervisor: Marguerite Goldsmith RDMS Physician: Jerrica Jeffery MD Electronically signed by: Jerrica Jeffery MD at: 07:59 us Jerrica Jeffery MD IMG US ORDERABLES Final Re sult documented in this encounter Visit Diagnoses Not on filedocumented in this encounter Care Teams Strike Operations Officer Relationship Specialty Start Date End Date Romy Dubose PA PCP - General Physician Head Stock Transfer Clerk 04/01/18 11/22/19 documented as of this encounter
--- OUTSIDE RECORDS SUMMARY | 2018-09-15 08:18 | XMS_ITS | Encounter Summary ---
Author Organization [facility] Address [address] [place] [address] Care Team Providers Care Leakage Tester Name Role Phone Romy Dubose Primary Care Provider [phone] Reason for Visit * Diagnostic Imaging (Routine) - Canceled Specialty Diagnoses / Procedures Referred By Contac t Referred To Contact Radiology Diagnoses Dichorionic diamniotic twin in second trimester High-risk in third trimester Procedures US Biophysical Profile;Without Non-Stress Testing Jerrica Jeffery MD [address] [facility] [address] [place] [address] Phone: tel: fax: [facility] Phone: tel: Referral ID Status Reason Start Date Expiration Date V isits Requested Visits Authorized [id number] Canceled 08/11/2018 08/11/2019 1 1 Encounter Details Date Type Department Care Team ([facility] st Contact Info) Description 09/15/2018 8:18 AM EDT Hospital Encounter [facility] [phone] Social History Tobacco Use Types Packs/Day Years Used Date Smoking Tobacco: Former Cigarettes 1 8.6 2 - 01/2018 Smokeless Tobacco: Never Alcohol Use Standard Drinks/Week Comments No 0 (1 standard drink = 0.6 oz pur e alcohol) [place] Depression Scale Answer Date Recorded Retired [place] Depression Score 0 09/22/2018 Retired EPD Scale: Thought of Harming Self Unrec ognized value 09/22/2018 Comments No Sex and Gender Information Value Date Recorded Sex Assigned at Not on file Legal Sex Female 1:31 PM EDT Gender Identity Not on file Sexual Orientation Not on file 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 Not on file Not on file documented as of this encounter Plan of Treatment Not on file documented as of this encounter Procedures Procedure Name Priority Date/Time Associated Diagnosis Comments US BIOPHYSICAL PROFILE;WITHOUT NON-STRESS TESTING Routine 09/15/2018 8:53 AM EDT Dichorionic diamniotic twin in second trimester High-risk in third trimester documented in this encounter Results * US Biophysical Profile;Without Non-Stress Testing (09/15/2018 8:53 AM EDT) Anatomical Region Laterality Modality Body Ultrasound 09/15/2018 8:32 AM EDT Narrative 09/15/2018 9:13 AM EDT PAT NAME: KORIN GUTIERREZ [facility] REC#: [id number] DA: [id number] PAT GEND: F PAT TYPE: O EXAM INNA: [id number] REF PHYS LYNDON JEFFERYLEY Indication ======== BPP, Twins Method ====== Transabdominal ultrasound examination. View: Sufficient ========= Twin . Dichorionic-diamniotic. Number of fetuses: 2. Dating ====== GA by stated dating 37 w + 2 d JAVY by stated dating : 10/04/2018 Method of dating: Restore dating from previous exam Previous dating: Dating performed on 08/18/2018, based on the external assessment Agreed JAVY of previous datin10/04/2018 Assigned: Dating performed on 08/18/2018, based on the external assessment Assigned GA 37 w + 2 d Assigned JAVY: 10/04/2018 General Evaluation Cardiac activity present. FHR 147 bpm. movements visualized. Presentation cephalic. Placenta Placental site: anterior. Amniotic Fluid Assessment Amount of AF: normal MVP 3.6 cm Biophysical Profile 2: breathing movements 2: Gross body movements 2: tone 2: Amniotic fluid volume /8: Biophysical profile score General Evaluation Cardiac activity present. FHR 155 bpm. movements visualized. Presentation cephalic. Placenta Placental site: anterior. Amniotic Fluid Assessment Amount of AF: normal MVP 6.8 cm Biophysical Profile 2: breathing movements 2: Gross body movements 2: tone 2: Amniotic fluid volume 8: Biophysical profile score Senior Group Manager Comments Baby A is cephalic and on maternal left. Baby B is cephalic and on maternal right. Impression ========= Normal BPP for both fetuses Recommendation Continue the routine schedule of testing for the condition being monitored. Senior Group Manager: Chandni Mistry RDMS Physician: Megha Tracy MD Electronically signed by: Megha Tracy MD at: 09:13 Procedure Note Megha Tracy MD - 09/15/2018 PAT NAME: KORIN GUTIERREZ MED REC#: [id number] DA: 1990 PAT GEND: F PAT TYPE: O EXAM INNA: [id number] REF PHYS JERRICA JEFFERY Indication ======== BPP, Twins Method ====== Transabdominal ultrasound examination. View: Sufficient ========= Twin . Dichorionic-diamniotic. Number of fetuses: 2. Dating ====== GA by stated dating 37 w + 2 d JAVY by stated dating :10/04/2018 Method of dating:Restore dating from previous exam Previous dating:Dating performed on 08/18/2018, based on the externalassessment Agreed JAVY of previous datin10/04/2018 Assigned:Dating performed on 08/18/2018, based on the externalassessment Assigned GA37 w + 2 d Assigned JAVY:10/04/2018 General Evaluation Cardiac activity present. FHR 147 bpm. movements visualized. Presentation cephalic. Placenta Placental site: anterior. Amniotic Fluid Assessment Amount of AF: normal MVP 3.6 cm Biophysical Profile 2: breathing movements 2: Gross body movements 2: tone 2: Amniotic fluid volume 02/03: Biophysical profile score General Evaluation Cardiac activity present. FHR 155 bpm. movements visualized. Presentation cephalic. Placenta Placental site: anterior. Amniotic Fluid Assessment Amount of AF: normal MVP 6.8 cm Biophysical Profile 2: breathing movements 2: Gross body movements 2: tone 2: Amniotic fluid volume 02/03: Biophysical profile score Senior Group Manager Comments Baby A is cephalic and on maternal left. Baby B is cephalic and on maternal right. Impression ========= Normal BPP for both fetuses Recommendation Continue the routine schedule of testing for the condition beingmonitored. Senior Group Manager: Chandni Mistry RDMS Physician: Megha Tracy MD Electronically signed by: Megha Tracy MD at: 09:13 us Jerrica Jeffery MD IMG US ORDERABLES Final Re sult documented in this encounter Visit Diagnoses Not on filedocumented in this encounter Care Teams Leakage Tester Relationship Specialty Start Date End Date Romy Dubose PA PCP - General Physician Histology Teacher 04/01/18 11/22/19 documented as of this encounter
--- OUTSIDE RECORDS SUMMARY | 2018-12-22 08:30 | XMS_ITS | Encounter Summary ---
Author Organization [facility] Address [address] [place] [address] Care Team Providers Care Asset Administrator Name Role Phone Romy Dubose Primary Care Provider [phone] Reason for Referral * Diagnostic Imaging (Routine) - Closed Specialty Diagnoses / Procedures Referred By Contac t Referred To Contact Radiology Diagnoses Contraception, device intrauterine Visit for insertion of intrauterine device Procedures US Non-ob Transvaginal Jerrica Jeffery MD [address] [place] [address] Phone: tel: fax: [facility] Phone: tel: Referral ID Status Reason Start Date Expiration Date Visits Re quested Visits Authorized [id number] Closed 11/10/2018 11/10/2019 1 1 Reason for Visit * Diagnostic Imaging (Routine) - Closed Specialty Diagnoses / Procedures Referred By Contac t Referred To Contact Radiology Diagnoses Contraception, device intrauterine Visit for insertion of intrauterine device Procedures US Non-ob Transvaginal Jerrica Jeffery MD [address] [place] [address] Phone: tel: fax: [facility] Phone: tel: Referral ID Status Reason Start Date Expiration Date Visits Re quested Visits Authorized [id number] Closed 11/10/2018 11/10/2019 1 1 Encounter Details Date Type Department Care Team (Latest Contact Info) Description 12/22/2018 8:30 AM EDT Hospital Encounter [facility] [phone] Contraception, device intrauterine; Visit for insertion of intrauterine device Social History Tobacco Use Types Packs/Day Years Used Date Smoking Tobacco: Former Cigarettes 1 8.6 2 010 - 01/2018 Smokeless Tobacco: Never Alcohol Use Standard Drinks/Week Comments No 0 (1 standard drink = 0.6 oz pur e alcohol) [place] Depression Scale Answer Date Recorded Retired [place] Depression Score 0 09/22/2018 Retired EPD Scale: Thought of Harming Self Unrec ognized value 09/22/2018 Comments No Sex and Gender Information Value Date Recorded Sex Assigned at Not on file Legal Sex Female 1:31 PM EDT Gender Identity Not on file Sexual Orientation Not on file 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 Not on file Not on file documented as of this encounter Plan of Treatment Not on file documented as of this encounter Procedures Procedure Name Priority Date/Time Associated Diagnosis Comments US NON-OB TRANSVAGINAL Routine 12/22/2018 9:27 AM EDT Contraception, device intrauterine Visit for insertion of intrauterine device documented in this encounter Results * US Non-ob Transvaginal (12/22/2018 9:27 AM EDT) Anatomical Region Laterality Modality Body Ultrasound 12/22/2018 8:54 AM EDT Narrative 12/22/2018 6:12 PM EDT PAT NAME: KORIN GUTIERREZ MED REC#: [id number] DA: [id number] PAT GEND: F PAT TYPE: O EXAM INNA: [id number] REF PHYS JERRICA JEFFERY Indication ======== Localization of IUD, pelvic discomfort History ====== General History Other: BMI 47.1 Assessment LMP on 12/20/2018. Day of cycle 3 Method ====== [place] E6, Transvaginal ultrasound examination, Color Doppler flow performed, 3D ultrasound examination. View: Adequate view Uterus ====== Uterus details: An arm of the IUD can be seen in the myometrium, IUD appears to be in the area of the lower uterine segment Uterus position: Anteverted Myometrium: Homogeneous Endometrium: Uniform Cervix details: Normal Uterus long 66 mm Uterus ap 43 mm Uterus tr 45 mm Uterus Vol 66.3 cm Endometrial thickness, total 3.7 mm Cervical length 23.4 mm Right Ovary ========= Rt ovary: Normal Rt ovary D1 31.2 mm Rt ovary D2 19.9 mm Rt ovary D3 19.4 mm Left Ovary ======== Lt ovary: Normal Lt ovary D1 32.3 mm Lt ovary D2 16.3 mm Lt ovary D3 21.30 mm Cul de Sac ========= Normal Impression ========= IUD with sub-optimal placement Recommendation Clinical judgement is needed to determine if further work-up is needed. Quality Compliance Manager: Chandni Mistry RDMS Physician: Jerrica Jeffery MD Electronically signed by: Jerrica Jeffery MD at: 18:12 Procedure Note Jerrica Jeffery MD - 12/22/2018 PAT NAME: KORIN GUTIERREZ [facility] REC#: [id number] DA: [id number] PAT GEND: F PAT TYPE: O EXAM INNA: [id number] REF PHYS JERRICA JEFFERY Indication ======== Localization of IUD, pelvic discomfort History ====== General History Other:BMI 47.1 Assessment LMP on 12/20/2018. Day of cycle 3 Method ====== [place] E6, Transvaginal ultrasound examination, Color Doppler flowperformed, 3D ultrasound examination. View: Adequate view Uterus ====== Uterus details:An arm of the IUD can be seen in the myometrium, IUDappears to be in the area of the lower uterine segment Uterus position:Anteverted Myometrium:Homogeneous Endometrium:Uniform Cervix details:Normal Uterus long66 mm Uterus ap43 mm Uterus tr45 mm Uterus Vol66.3 cm Endometrial thickness, total3.7 mm Cervical wisqeu50.4 mm Right Ovary ========= Rt ovary:Normal Rt ovary D131.2 mm Rt ovary D219.9 mm Rt ovary D319.4 mm Left Ovary ======== Lt ovary:Normal Lt ovary D132.3 mm Lt ovary D216.3 mm Lt ovary D321.30 mm Cul de Sac ========= Normal Impression ========= IUD with sub-optimal placement Recommendation Clinical judgement is needed to determine if further work-up is needed. Quality Compliance Manager: Chandni Mistry RDNV Physician: Jerrica Jeffery MD Electronically signed by: Jerrica Jeffery MD at: 18:12 us Jerrica Jeffery MD IMG US ORDERABLES Final Re sult documented in this encounter Visit Diagnoses Diagnosis Contraception, device intrauterine Presence of intrauterine contraceptive device Visit for insertion of intrauterine device Insertion of intrauterine contraceptive device documented in this encounter Care Teams Asset Administrator Relationship Specialty Start Date End Date Romy Dubose PA PCP - General Physician Supervisor [employer] 04/01/18 11/22/19 documented as of this encounter
[2025-02-16 16:17] VITALS: BP 166/112; PULSE 63; RESP 18; TEMP 36.7; O2SAT 98; BMI 45.0
--- OUTSIDE RECORDS SUMMARY | 2025-02-16 16:23 | XMS_ITS | Clinical Summary ---
Author Organization Healthcare Address [address] [place] [address] Care Team Providers Care Beauty Counselor Name Role Phone Brian Stephenson MD Primary Care Provider [phone] Family History Medical History Relation Name Comments [...] of Treatment Not on file Care Teams Beauty Counselor Relationship Specialty Start Date End Date Brian Stephenson MD [address] [facility] [address] [place] [address] PCP - General 11/09/20
--- OUTSIDE RECORDS SUMMARY | 2025-02-16 16:23 | XMS_ITS | Clinical Summary ---
Author Organization [facility] Address [address] [place] [address] Care Team Providers Care Lawn Sprinkler Installer Name Role Phone Jose Alfredo Chinchilla MD Primary Care Provider [phone] Allergies No known active allergies Medications FLUoxetine (PROzac) 20 MG capsule Take 3 capsules by mouth Daily. Active Active Problems Problem Noted Date Diagnosed Date Palpitations 05/24/2024 Assessment & Plan (05/24/2024 3:32 PM EST): -Check EKG, Holter, echo, and home sleep study Orders: Adult Transthoracic Echo Complete W/ Cont if Necessary Per Protocol; Future Holter Monitor - 72 Hour Up To 15 Days; Future Home Sleep Study; Future ECG 12 Lead Numbness and tingling in left arm 05/24/2024 Assessment & Plan (05/24/2024 3:32 PM EST): --Check EKG, Holter, echo, and home sleep study Orders: Adult Transthoracic Echo Complete W/ Cont if Necessary Per Protocol; Future Holter Monitor - 72 Hour Up To 15 Days; Future Home Sleep Study; Future ECG 12 Lead Hypersomnia 05/24/2024 Assessment & Plan (05/24/2024 3:32 PM EST): --Check EKG, Holter, echo, and home sleep study Orders: Adult Transthoracic Echo Complete W/ Cont if Necessary Per Protocol; Future Holter Monitor - 72 Hour Up To 15 Days; Future Home Sleep Study; Future Abnormal EKG 05/24/2024 Assessment & Plan (05/24/2024 3:32 PM EST): -Sinus arrhythmia -Coexisting palpitations --Check EKG, Holter, echo, and home sleep study Orders: Adult Transthoracic Echo Complete W/ Cont if Necessary Per Protocol; Future Holter Monitor - 72 Hour Up To 15 Days; Future Home Sleep Study; Future Morbid obesity with BMI of 45.0-49.9, adult 04/29 Annual OIL WELL PUMPER exam w/o problem 04/01/2018 Overview (05/07/2021): SCREENING TESTS Year 2013 2014 2015 2016 2017 2018 2019 2020 2021 2022 2023 2024 2025 2026 2027 2028 2029 2030 2031 2032 Age PAP 1 - - 11 HPV high risk NADER [Birads] LIDYA (5 year) Tyrer Garland (lifetime) Colonoscopy DEXA [T-score] Frax [hip/any] Lipids [LDL / HDL / TG] Vitamin D Ovarian Screen Enter the month test was performed. 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 Other info: Anxiety - PCP managing 06/29/2016 Resolved Problems Problem Noted Date Diagnosed Date Resolved Date S/P LSC with salpingectomy 12/03/22 12/03/2022 12/15/2022 Request for sterilization 09/22/2022 Mirena 11/10/2018 12/22/2018 Overview (12/22/2018): Placed on 11/10/2018 and removed on 12/22/2018 care following SV D (Celine) and vacuum delivery ([place]) 09/22/18 09/22/2018 9 38 weeks gestation of 09/20/2018 09/22/2018 DC/DA discordant twins in th ird trimester (B>A) 09/08/2018 09/22/2018 Maternal morbid obesity, antepartum 04/21/2018 09/22/2018 Dichorionic diamniotic twin in second trimester 04/08/2018 09/22/2018 Overview (09/08/2018): Twins EFW's Gestational Age (wks) 16w2d 20w0d 24w0d 28w0d 32w2d 36w2d Twin A (%'ile) 158 gm 357 gm 50% 63% 42% 15% (AC 2%) Twin B (%'ile) 182 gms 366 gm 59% 68% 70% 33% Cervical length (cms) Gestational Age (wks) 16w2d 20w0d 24w0d Length 3.8 cm 3.8 cm 4.5 cm High-risk in third trimester 04/01/2018 09/22/2018 Overview (08/11/2018): Transfer care from [place] gender: girl / girl classes discussed: 07/12/2018 Circumcision (y / n / na): n/a District Wildlife Manager: Service Baby's name: Celine Rosado Breast/bottle feeding: bottle Placental location: Anterior/fundal Postdates discussed: Tdap discussed: 07/12/2018 Tdap vaccine received: Flu vaccine discussed: 04/08/2018 Flu vaccine received: Family History Medical History Relation Name Comments No Known Problems Brother No Known Problems Daughter Diabetes Father Gout Father Hyperlipidemia Father Hypertension Father No Known Problems Maternal Aunt No Known Problems Maternal Grandfather Stroke Maternal Grandmother No Known Problems Maternal Uncle Kidney cancer Mother Thyroid cancer Mother No Known Problems Paternal Aunt No Known Problems Paternal Grandfather No Known Problems Paternal Grandmother No Known Problems Paternal Uncle No Known Problems Sister No Known Problems Son Relation Name Status Comments Brother Daughter Father Maternal Aunt Maternal Grandfather Maternal Grandmother Maternal Uncle Mother Paternal Aunt Paternal Grandfather Paternal Grandmother Paternal Uncle Sister Son Social History Tobacco Use Types Packs/Day Years Used Date Smoking Tobacco: Former Cigarettes 1 8.6 2 - 01/2018 Smokeless Tobacco: Never Tobacco Cessation:Counseling Given: Not Answered Alcohol Use Standard Drinks/Week Comments No 0 (1 standard drink = 0.6 oz pur e alcohol) [place] Depression Scale Answer Date Recorded Retired [place] Depression Score 0 09/22/2018 Retired EPD Scale: Thought of Harming Self Unrec ognized value 09/22/2018 Comments No Sex and Gender Information Value Date Recorded Sex Assigned at Not on file Legal Sex Female 1:31 PM EDT Gender Identity Not on file Sexual Orientation Not on file 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 Not on file Not on file Not on file Last Filed Vital Signs Vital Sign Reading Time Taken Comments Blood Pressure 123/80 05/30/2024 10:59 AM EST Pulse 88 05/24/2024 12:47 PM EST Temperature 36.6 C (97.8 F) 09/24/2018 8:00 AM EDT Respiratory Rate 14 09/22/2022 1:16 PM EDT Oxygen Saturation 97% 05/24/2024 12:47 PM EST Inhaled Oxygen Concentration - - Weight 140 kg (309 lb) 05/30/2024 10:59 AM EST Height 172.7 cm (5' 8 ) 05/30/2024 10:59 AM EST Body Mass Index 46.98 05/30/2024 10:59 AM EST Plan of Treatment Health Maintenance Due Date Last Done Comments TDAP/TD VACCINES (1 - Tdap) 2011 ANNUAL PHYSICAL 04/01/2018 Annual Gynecologic Pelvic an d Breast Exam 05/07/2023 05/06/2022 COVID-19 Vaccine ( - 2023-2 5 season) 2024 PAP SMEAR 05/02/2024 05/02/2021 INFLUENZA VACCINE 03/29/2025 HEPATITIS C SCREENING Completed 02/15/2018 Pneumococcal Vaccine 0-49 Aged Out No longer eligible based on patient's age to complete this topic Procedures Procedure Name Priority Date/Time Associated Diagnosis Comments PAP IG, RFX HPV ASCU (P&C LAB) Routine 05/02/2021 Annual OIL WELL PUMPER exam w/o problem HEPATITIS C ANTIBODY Routine 02/15/2018 from Last 3 Months or Most Recently Relevant to Health Maintenance Results * Pap IG, Rfx HPV ASCU (05/02/2021) Specimen from cervix or vagina / Unknown us Reuben Vernon MD PATHOLOGY/CYTOLOGY ORDERAB LES Final Result [facility]
[address] [place] [address], * Hepatitis C Antibody (02/15/2018) Hep C Virus Ab negative Blood us Historical Provider LAB BLOOD ORDERABLES Anusha l Result from Last 3 Months or Most Recently Relevant to Health Maintenance Insurance Advance Directives * CPR (Attempt to Resuscitate) (Latest Code Status on File) Date Activated Date Inactivated Comments 09/22/2018 12:43 PM 09/24/2018 3:08 PM Question Answer Comments Code Status (Patient has no pulse and is not breathing): CPR (Attempt to Resuscitate) Medical Interventions (Patie nt has pulse or is breathing): Full * CPR (Attempt to Resuscitate) Date Activated Date Inactivated Comments 09/21/2018 4:52 PM 09/22/2018 12:43 PM Question Answer Comments Code Status (Patient has no pulse and is not breathing): CPR (Attempt to Resuscitate) Medical Interventions (Patie nt has pulse or is breathing): Full Care Teams Lawn Sprinkler Installer Relationship Specialty Start Date End Date Jose Alfredo Chinchilla MD [address] [place] [address] [place] [address] PCP - General Family Medicine 06/13/24
--- NOTE | 2025-02-16 16:27 | HMH.EDGENADL ---
Discharge Plan Disposition Patient Disposition: Home, Self-Care Condition: Good Prescriptions Prescriptions: New ketorolac 10 mg tablet 10 mg PO Q8H PRN (Reason: pain) 1 Days Qty: 10 0RF oxycodone 5 mg tablet 5 mg PO DAILY Qty: 6 0RF tamsulosin [Flomax] 0.4 mg capsule 0.4 mg PO DAILY Qty: 10 0RF cephalexin 500 mg capsule 500 mg PO BID 7 Days Qty: 14 0RF No Action citalopram [Celexa] 40 mg tablet 40 mg PO DAILY Qty: 90 2RF pseudoephedrine HCl 120 mg tablet extended release 120 mg PO Q12H Qty: 20 1RF amoxicillin 875 mg tablet 875 mg PO BID Qty: 14 0RF Referrals Follow up/Referrals: Con Arriola MD [Referring, Urology] - See instructions Jose Alfredo Chinchilla MD [Primary Care Provider, Internal Medicine] - See instructions Activity Restrictions/Add. Instructions Additional Instructions/Restrictions: You can take Toradol in addition to Tylenol at home and take oxycodone for breakthrough pain. Do not take Toradol in addition to ibuprofen or other NSAIDs. I have sent you with Flomax as well. Take the antibiptics as needed for UTI. I sent with the referral to urology if needed. Return to the emergency department if you are unable to urinate, develop fevers worsening pain that is not controlled at home. Clinical Impressions Clinical Impression: Kidney stone, Hydronephrosis Instructions Patient Instructions: DI for Urinary Tract Infection (UTI), DI for Urinary Tract Infection in Children Print Language Print Language: Georgian Discharge ED Provider: Zari Smith Adult HPI General Chief complaint: Urogenital-Female Stated complaint: Lower back pain,right side pain Time Seen by Provider: 02/16/25 16:27 Mode of Arrival: Ambulatory Source of Information: Patient and Spouse Description of Symptoms (Recalled from ER Triage Doc. by RN): nilo presents to the ED for 10/10 right flank pain. Cesar states she feels like she is trying to pass a kidney stone. patient has a history of stones, recent one in July. History of Present Illness HPI narrative: Patient is an otherwise healthy 34-year-old female with a past medical history of kidney stones who presented to the emergency department with right flank pain. Patient states that she woke up acutely this morning with right sided flank pain that radiates into her right lower quadrant. Patient states that pain feels similar to previous kidney stones. Patient states that she took a Percocet prior to arrival that did not improve her pain. Patient reports nausea but no vomiting. Patient states that her previous kidney stone did not require surgery and she was able to pass it on her own. Patient reports some difficulty urinating but no other urinary symptoms. Patient denies any chest pain shortness of breath. Patient denies any fevers. No prior surgeries. Related Data Previous Rx's ?Medication ?Instructions ?Recorded citalopram 40 mg tablet (Celexa) 40 mg PO DAILY #90 tabs 11/15/24 amoxicillin 875 mg tablet 875 mg PO BID #14 tabs 02/07/25 pseudoephedrine HCl 120 mg 120 mg PO Q12H congestion #20 tabs 02/07/25 tablet,extended release cephalexin 500 mg capsule 500 mg PO BID 7 days #14 caps 02/16/25 ketorolac 10 mg tablet 10 mg PO Q8H PRN pain 1 day #10 02/16/25 tabs oxycodone 5 mg tablet 5 mg PO DAILY #6 tabs 02/16/25 tamsulosin 0.4 mg capsule (Flomax) 0.4 mg PO DAILY #10 caps 02/16/25 Allergies Allergy/AdvReac Type Severity Reaction Status Date / Time No Known Allergies Allergy Verified 02/07/25 15:39 [facility] Disclaimer: The information contained in this section may have been updated after the patient was seen, as this information can be updated by other users. Medical History Obesity, unspecified Kidney stone Anxiety Irritability and anger Surgical History Tubal ligation status Hx of cholecystectomy H/O lateral meniscus repair of right knee Social History Smoking Status: Never smoker alcohol intake: never current occupational status: employed Travel in the last 8 weeks?: None housing: house Have you lived/traveled outside US in past 30 days?: No Contact w/someone who lives/traveled outside US past 30 days?: No Exposure to someone with infectious disease in past 14 days?: No Do you have a fever (greater than 100.4 F or 38 C)?: No Have you tested positive for COVID-19?: No Exposed to someone with COVID-19 in past 14 days?: No Do you have a sore throat?: No Do you have a cough?: No Do you have any weakness?: No Do you have any diarrhea?: No Are you experiencing any unusual bleeding?: No Do you have any muscle aches/pain?: Yes Do you have any abdominal pain?: No Are you experiencing loss of taste or smell?: No Other Medical History Have you received the Flu Vaccine for this season: No Have you received the Pneumonia Vaccine: No ROS Obtained: Yes All systems reviewed & no additional complaints except as documented and Yes Systems reviewed as appropriate & no additional complaints except as documented Physical Exam General General appearance: alert and other (Patient appears very uncomfortable) Head Head exam: atraumatic, normocephalic and normal inspection Eye Eye exam: Present normal appearance, PERRL and EOMI; Absent scleral icterus ENT ENT exam: Present normal exam and normal external ear exam Neck Neck exam: Present normal inspection and full ROM Chest Chest inspection: Present normal inspection and symmetric chest wall rise Respiratory Respiratory exam: Present normal lung sounds bilaterally; Absent respiratory distress or wheezes Cardiovascular Cardiovascular exam: Present regular rate, normal rhythm and normal heart sounds Abdominal Exam Abdominal exam: Present soft, distention and other (Right CVA tenderness); Absent tenderness, guarding or rebound Extremities Exam Extremities exam: Present normal inspection and full ROM Back Exam Back exam: Present normal inspection and full ROM Neurological Exam Neurological exam: Present alert and oriented X3 Psychiatric Psychiatric exam: Present normal affect and normal mood Skin Skin exam: Present warm and dry Medical Decision Making Medical Records Medical records reviewed: Yes I reviewed the patient's medical records. Screening: Per USPSTF and CDC recommendations, given the prevalence of disease in our region, it is our hospital?s policy to screen for HIV and viral Hepatitis for all patients aged 18 and over and those with ongoing risk factors. [place] Inquiry Pt receiving controlled substance: No Vital Signs: 02/16/25 16:17 02/16/25 17:07 02/16/25 18:33 Temperature 98.0 F 98.4 F Temperature Source Oral Oral Pulse Rate 67 89 Pulse Rate [Right Radial] 63 Respiratory Rate 18 17 17 Blood Pressure 156/99 H 132/74 Blood Pressure [Right Arm] 166/112 H Blood Pressure Mean 118 Blood Pressure Mean [Right Arm] 130 Blood Pressure Source [Right Arm] Automatic Cuff Blood Pressure Position [Right Arm] Sitting 02 Sat by Pulse Oximetry 98 97 Oxygen Delivery Method Room Air Room Air Room Air Lab Data Lab results reviewed: Yes I reviewed the patient's lab results. Lab Results 02/16/25 16:11: Urine Color Yellow, Urine Appearance Sl cloudy, Urine pH 5.5, Ur Specific [place] >= 1.030, Urine Protein Negative, Urine Glucose (UA) Negative, Urine Ketones Negative, Urine Blood Negative, Urine Nitrate Negative, Urine Bilirubin Negative, Urine Urobilinogen 0.2, Ur Leukocyte Esterase Negative, Urine RBC None, Urine WBC 3-5, Ur Squamous Epith Cells 5-10, Urine Bacteria 1+ 02/16/25 16:21: WBC 10.6, RBC 4.64, Hgb 14.0, Hct 41.6, MCV 89.7, MCH 30.2, MCHC 33.7, RDW 12.8, Plt Count 296, MPV 10.6 H, Neut % (Auto) 64.7, Lymph % (Auto) 28.7, [place] % (Auto) 5.0, Eos % (Auto) 0.9, Baso % (Auto) 0.4, Neut # (Auto) 6.9, Lymph # (Auto) 3.0, [place] # (Auto) 0.5, Eos # (Auto) 0.1, Baso # (Auto) 0.0, Sodium 139, Potassium 4.6, Chloride 105, Carbon Dioxide 25, Anion Gap 13.6, BUN 13, Creatinine 1.00, Estimated Creat Clear 84, Estimated GFR 64, Est GFR ( Amer) 78, Glucose 99, Calcium 9.2, Total Bilirubin 0.5, AST 32, ALT 24, Alkaline Phosphatase 55, Total Protein 7.8, Albumin 4.6, Globulin 3.2, Albumin/Globulin Ratio 1.4, Serum HCG, Qual Negative 02/16/25 16:21 02/16/25 16:21 Orders (Tests/Meds): ED MEDICATIONS Discontinued Medications Generic Name Dose Route Start Last Admin Trade Name Freq PRN Reason Stop Dose Admin Sodium Chloride 1,000 mls @ 999 mls/hr 02/16/25 16:42 02/16/25 18:23 Sod Chlor 0.9% 1000ml Bag IV 02/16/25 17:42 Infused .Q1H1M ONE Infusion Iopamidol 75 ml 02/16/25 16:58 02/16/25 16:59 Iopamidol-370 (76%);100ml Bottle IV 02/16/25 16:59 75 ml ONCE ONE Administration Ketorolac Tromethamine 30 mg 02/16/25 16:42 02/16/25 16:50 Ketorolac 30mg/Ml Vial IV 02/16/25 16:43 30 mg ONCE ONE Administration Morphine Sulfate 4 mg 02/16/25 16:42 02/16/25 16:51 Morphine 4mg/Ml Syringe IV 02/16/25 16:43 4 mg ONCE ONE Administration Ondansetron HCl 4 mg 02/16/25 16:42 02/16/25 16:51 Ondansetron 4mg/2ml Vial IV 02/16/25 16:43 4 mg ONCE ONE Administration Sodium Chloride 10 ml 02/16/25 16:58 02/16/25 16:59 Sodium Chloride 0.9% 10ml Syr (Rad Only) IV 02/16/25 16:59 10 ml ONCE ONE Administration Tamsulosin HCl 0.4 mg 02/16/25 21:00 Tamsulosin 0.4mg Capsule PO 03/18/25 20:59 HS JESSE Tamsulosin HCl 0.4 mg 02/16/25 17:47 02/16/25 17:50 Tamsulosin 0.4mg Capsule PO 02/16/25 17:48 0.4 mg ONCE ONE Administration ORDERS Category Date Time Status CT abdomen pelvis w con Stat Cat Scan 02/16/25 16:43 Completed Complete Blood Count Auto Diff Stat Lab 02/16/25 16:21 Completed Comprehensive Metabolic Panel Stat Lab 02/16/25 16:21 Completed Serum [HCG Qualitative, Serum] Stat Lab 02/16/25 16:21 Completed UA [Urinalysis and Microscopic] Stat Lab 02/16/25 16:11 Completed Medical Decision Narrative: Patient is an otherwise healthy 34-year-old female with a past medical history of kidney stones who presented to the emergency department with right flank pain onset this morning. On arrival, patient was hemodynamically stable with unremarkable vital signs. Exam was notable for right CVA tenderness and patient appearing very uncomfortable. Differential includes but not limited to: Urinary tract infection, pyelonephritis, nephrolithiasis, appendicitis, amongst others. Patient's labs were reviewed and interpreted by myself: CBC showed no leukocytosis, hemoglobin was stable. CMP was unremarkable. UA had 1+ bacteria, 3-5 white blood cells, negative nitrates. test negative. CT scan was reviewed and interpreted by myself and showed a right sided kidney stone. Radiology reports reported that it was 3 mm nonobstructing stone at the right ureteral vesicle juntion with moderate right hydronephrosis. Patient was given IV fluids, IV Toradol, Flomax and morphine in the emergency department and pain went from a 10 to a 2. At this time, patient felt that her pain was under control and that she was comfortable discharging home. Patient was sent with Toradol advised to use in addition to Tylenol was given Flomax and oxycodone for break through pain and was given Keflex for UTI. Given that her kidney stone is 3 mm nonobstructing felt that this would likely pass on its own. Patient was given outpatient urology follow-up if needed. Patient was given return precautions including inability to urinate, development of fevers acute or severe pain. Patient was otherwise discharged home in stable condition return precautions were discussed. Critical Care Critical Care Time Critical Care Time: No
[2025-02-16 16:37] LABS: Hematocrit 41.6 % (37.0-47.0); Hemoglobin 14.0 g/dL (12.2-16.2); Immature Granulocytes % 0.3 %; Mean Corpuscular HGB Conc 33.7 g/dL (31.8-35.4); Mean Corpuscular Hemoglobin 30.2 pg (27.0-31.2); Mean Corpuscular Volume 89.7 fl (81-99); Nucleated Red Blood Cells % 0 %; Platelet Count 296 K/mm3 (142-424); Red Blood Count 4.64 M/mm3 (4.20-5.40); Red Cell Distribution Width-SD 42.0 fL; White Blood Count 10.6 K/mm3 (4.8-10.8)
--- NOTE | 2025-02-16 16:43 | CT_ITS ---
PROCEDURE INFORMATION: Exam: CT Abdomen And Pelvis With Contrast Exam date and time: 02/16/2025 5:00 PM Age: 34 years old Clinical indication: Abdominal pain; Additional info: R flank pain, rlq pain concern for stone TECHNIQUE: Imaging protocol: Computed tomography of the abdomen and pelvis with contrast. Radiation optimization: All CT scans at this facility use at least one of these dose optimization techniques: automated exposure control; mA and/or kV adjustment per patient size (includes targeted exams where dose is matched to clinical indication); or iterative reconstruction. Contrast material: ISOVUE; Contrast volume: 75 ml; Contrast route: IV; COMPARISON: CT ABDOMEN PELVIS WO CON 11/04/2019 1:32 PM FINDINGS: Lungs: Bilateral dependent pulmonary atelectasis is demonstrated within the lungs. Liver: Unremarkable. No mass. Gallbladder and biliary ducts: The gallbladder has been surgically removed. Surgical clips identified in the gallbladder fossa. Post cholecystectomy common biliary duct ectasia. If clinically indicated, consider correlation with liver function tests. Pancreas: Unremarkable. Spleen: Unremarkable. No splenomegaly. Adrenal glands: Normal. No mass. Kidneys and ureters: Distal right calculus demonstrated within the ureterovesical junction. Calculus measurement and location: 3 mm calculus on axial image 107. Evidence of moderate right hydronephrosis. Perinephric edema. Right-sided retroperitoneal, renal and perinephric edema is demonstrated. Stomach and bowel: Generalized colonic diverticulosis is demonstrated. No definite visible evidence for focal acute colonic diverticulitis. Appendix: The visualized appendix appears unremarkable. Intraperitoneal space: No free air. No significant fluid collection. Vasculature: Calcifications in the pelvis, most compatible with phleboliths. Lymph nodes: No enlarged lymph nodes. Urinary bladder: Unremarkable as visualized. Reproductive: Unremarkable as visualized. Bones/joints: Mild generalized bony degenerative changes. Bony structures appear otherwise unremarkable. Soft tissues: Unremarkable. Other findings: This study is limited by patient's body habitus. Limited study with motion artifact. IMPRESSION: 1. Right ureteral vesicle junction calculus, as described above. Moderate right hydronephrosis. 2. Colonic diverticulosis.
[2025-02-16] MEDS: KETOROLAC 30MG/ML VIAL 30 MG IV (16:50)
[2025-02-16] MEDS: 0.9 % SODIUM CHLORIDE 1000ML 1,000 ML 999 ML IV (16:50)
[2025-02-16] MEDS: ONDANSETRON 4MG/2ML VIAL 4 MG IV (16:51)
[2025-02-16] MEDS: MORPHINE 4MG/ML SYRINGE 4 MG IV (16:51)
[2025-02-16 16:52] LABS: HCG Qualitative, Serum Negative (Negative)
[2025-02-16 16:54] LABS: Alanine Aminotransferase 24 U/L (12-78); Albumin Level 4.6 g/dl (3.5-5.0); Albumin/Globulin Ratio 1.4 (1.1-1.8); Alkaline Phosphatase 55 U/L (38-126); Anion Gap 13.6 mEq/L (5-15); Aspartate Amino Transferase 32 U/L (14-36); Bilirubin,Total 0.5 mg/dl (0.2-1.3); Blood Urea Nitrogen 13 mg/dl (7-17); Calcium 9.2 mg/dl (8.4-10.2); Carbon Dioxide 25 mmol/L (22.0-30.0); Chloride 105 mmol/L (98-107); Creatinine Clearance Estimated 84 mL/min (50-200); Creatinine,Serum 1.00 mg/dl (0.52-1.04); Estimated Glomerular Filt Rate 64 ml/min (>60); GFR (African American) 78 ML/MIN (>60); Globulin 3.2 g/dL (1.3-3.2); Glucose 99 mg/dl (74-100); Potassium 4.6 mmoL/L (3.5-5.1); Sodium 139 mmol/L (136-145); Total Protein,Serum 7.8 g/dl (6.3-8.2)
[2025-02-16] MEDS: SODIUM CHLORIDE 0.9% 10ML SYR (RAD ONLY) 10 ML IV (16:59)
[2025-02-16] MEDS: IOPAMIDOL-370 (76%);100ML BOTTLE 75 ML IV (16:59)
[2025-02-16 17:07] VITALS: BP 156/99; PULSE 67; RESP 17; O2SAT 97
[2025-02-16 17:45] LABS: Microscopic, Urine URINE MICROSCOPIC (MICROSCOPIC)
[2025-02-16] MEDS: TAMSULOSIN 0.4MG CAPSULE 0.4 MG PO (17:50)
[2025-02-16 18:01] LABS: Bilirubin,Urine Negative (Negative); Color,Urine YELLOW (Yellow); Glucose,Urine (UA) Negative (Negative); Ketones,Urine Negative (Negative); Leukocyte Esterase,Urine Negative (Negative); PH,Urine 5.5 (5.0-8.5); Protein,Urine Negative (Negative); Specific Gravity, Urine >= 1.030 (1.005-1.030); Urobilinogen,Urine 0.2 EU/dl (0.2)
[2025-02-16 18:11] LABS: Bacteria,Urine 1+ /lpf
[2025-02-16 18:33] VITALS: BP 132/74; PULSE 89; RESP 17; TEMP 36.9; O2SAT 98
== END 2025-02-16 18:34 | disposition home or self-care (01) ==
PROVIDERS: Emergency Provider Student in an Organized Health Care Education/Training Program; PCP Family Medicine
DX: R10.31 Right lower quadrant pain (principal); M54.59 Other low back pain; N13.0 Hydronephrosis with ureteropelvic junction obstruction
CPT/HCPCS: 74177; 80053; 81001; 84703; 85025; 96361; 96374; 96375; 99284; J1885; J2270; J2405; J7030; Q9967